=== PATIENT | female | born 1960 | race Caucasian/White ===

== ENCOUNTER 2016-03-29 09:26 | Emergency (ER) ==
[2016-03-29 09:39] VITALS: TEMP 96.4; BMI 31.3
[2016-03-29] MEDS ORDERED: LOPRESSOR IVP STA ×2 (10:05→12:27)
[2016-03-29] MEDS ORDERED: ADENOCARD IVP STA (10:07)
[2016-03-29] MEDS ORDERED: ADENOCARD IVP ONE (10:09)
[2016-03-29 10:10] LABS: BASOPHILS # (AUTO) 0.1 K/uL (0-0.2); BASOPHILS % (AUTO) 0.6 % (0.0-3.0); EOSINOPHILS # (AUTO) 0.1 K/ul (0.0-0.7); EOSINOPHILS % (AUTO) 0.9 % (0.0-7.0); HEMATOCRIT 43.8 % (37.0-47.0); HEMOGLOBIN 14.6 g/dl (12.0-16.0); IMMATURE GRANULOCYTE % (AUTO) 1.9 % (0.0-5.0); LYMPHOCYTES # (AUTO) 2.8 K/uL (0.60-3.4); LYMPHOCYTES % (AUTO) 17.8 (10.0-50.0); MEAN CORPUSCULAR HEMOGLOBIN 32.2 pg (27.0-31.0); MEAN CORPUSCULAR HGB CONC 33.3 (31.8-35.4); MEAN CORPUSCULAR VOLUME 96.7 fl (81.0-99.0); MONOCYTES # (AUTO) 0.8 K/uL (0.4-2.0); MONOCYTES % (AUTO) 5.3 (0-10); NEUTROPHILS # (AUTO) 11.3 K/ul (2.0-6.9); NEUTROPHILS % (AUTO) 73.5; PLATELET COUNT 525 10^3/uL (140-440); RED BLOOD COUNT 4.53 10^6/ul (4.20-5.40); WHITE BLOOD COUNT 15.41 K/ul (4.6-10.2)
[2016-03-29 10:45] LABS: ABG BASE EXCESS -8 (-2.0-2.0); ABG HCO3 17 (22.0-26.0); ABG PH 7.37 (7.35-7.45); ABG TCO2 18 (22.0-28.0)
--- NOTE | 2016-03-29 10:55 | DI ---
EXAM: Chest two views HISTORY: Cough COMPARISON: 09/30/2014 TECHNIQUE: Two views of the chest were performed FINDINGS: There is lower airway bronchial wall thickening. There is no focal airspace consolidatio n. There is no pleural effusion or pneumothorax. The heart is top normal in size. The mediastinal contour is normal. There is no acute abnormality of the bones. IMPRESSION: Lower airway thickening may represent reactive airways disease or bronchiolitis. No fo jennifer airspace consolidation.
[2016-03-29 10:58] LABS: FLU INTERNAL QC INTERNAL QC VALID; RAPID FLU A NEGATIVE (NEGATIVE); RAPID FLU B NEGATIVE (NEGATIVE)
[2016-03-29 11:02] VITALS: BP 102/79
[2016-03-29 11:09] LABS: ALBUMIN 3.7 g/dL (3.4-5.0); ALBUMIN/GLOBULIN RATIO 1.19; ANION GAP 16.1; BILIRUBIN,TOTAL 0.8 mg/dL (0.00-1.20); BUN/CREATININE RATIO 11.68; CALCIUM 9.1 mg/dL (8.2-10.2); CREATININE 1.54 mg/dL (0.60-1.30); POTASSIUM 4.1 mmol/L (3.5-5.10); TOTAL PROTEIN 6.8 g/dL (6.4-8.2); TROPONIN I 0.102 ng/ml (0.0000-0.4000)
[2016-03-29 11:18] LABS: CREATINE KINASE MB 9.4 ng/ml (0.0-3.6)
[2016-03-29] MEDS ORDERED: ROCEPHIN 1 GM in SODIUM CHLORIDE 50 ML IV STA (12:20)
[2016-03-29] MEDS ORDERED: CARDIZEM INJ IVP STA (12:27)
[2016-03-29] MEDS ORDERED: ROCEPHIN ONE (12:46)
--- NOTE | 2016-03-29 12:49 | ED.PDOC ---
General ED Provider: Dr. ELIANE HARRISON Chief Complaint: Respiratory Complaint Stated Complaint: chest pain Time Seen by Physician: 09:30 (sent from PT dept due to shortness of breath during pt ) Mode of Arrival: Wheelchair Information Source: Patient Exam Limitations: No limitations Primary Care Provider: ANNAMARIE STEVENS Nursing and Triage Documentation Reviewed and Agree: Yes (left shoulder surgery mar 14 ) Respiratory Complaint Exam - Respiratory Complaint/Exam Onset/Duration: chest pain shortness of breath cough x 1 day Symptoms Are: Still present, Resolved Timing: Constant Initial Severity: Moderate Current Severity: Moderate Location: Chest Character: Reports: Non-productive cough Alleviating: Reports: Bronchodilators, Spontaneous resolution Associated Signs and Symptoms: Reports: Chest pain History of Healthcare-Acquired Pneumonia: No Pulmonary Embolism Risk Factors: None Cardiac Risk Factors: Reports: Diabetes, Hypertension Pseudomonas Risk Factors: Reports: None Tuberculosis Risk Factors: Reports: None Home Oxygen Use: No Recent Stress Test: No Recent Echo/LV Function: No Current Antibiotic Use: No Current Asthma Medication Use: No Respiratory Distress: None Inadequate Respiratory Effort: No Dysphagia Present: No Stridor Present: No JVD Present: No Accessory Muscle Use: No Retractions: Not Present Diminished Breath Sounds: No Sinus Tenderness: None Grunting Respirations: No Kussmaul Respirations: No Differential Diagnoses: CHF, COPD Exacerbation, Pneumonia, Bronchitis Review of Systems - Review Of Systems Constitutional: Reports: No symptoms Eyes: Reports: No symptoms Ears, Nose, Mouth, Throat: Reports: No symptoms Respiratory: Reports: Cough Cardiac: Reports: Chest pain GI: Reports: No symptoms : Reports: No symptoms Musculoskeletal: Reports: No symptoms Skin: Reports: No symptoms Neurological: Reports: No symptoms Endocrine: Reports: No symptoms Hematologic/Lymphatic: Reports: No symptoms All Other Systems: Reviewed and Negative Past Medical History - Past Medical History Previously Healthy: Yes Endocrine: Reports: DM 1, Hypothyroid, Dyslipidemia Cardiovascular: Reports: Hypertension Respiratory: Reports: None Hematological: Reports: None Gastrointestinal: Reports: Gallstones Genitourinary: Reports: None Neuro/Psych: Reports: TIA, Anxiety, Depression Musculoskeletal: Reports: None Cancer: Reports: None Last Menstrual Period: unknown Other Pertinent Past Medical History: TONSILLS, - Surgical History General Surgical History: Reports: Orthopedic, Other, Tonsillectomy - Family History Family History: Reports: Unknown - Social History Smoking Status: Never smoker Hx Substance Use: No Alcohol Screening: None Physical Exam - Physical Exam Appearance: Well-appearing, No pain distress, Well-nourished Eyes: WHIT, EOMI, Conjunctiva clear ENT: Ears normal, Nose normal, Oropharynx normal Respiratory: Airway patent, Breath sounds clear, Breath sounds equal, Respirations nonlabored Cardiovascular: RRR, Pulses normal, No rub, No murmur GI/: Soft, Nontender, No masses, Bowel sounds normal, No Organomegaly Musculoskeletal: Normal strength, ROM intact, No edema, No calf tenderness Skin: Warm, Dry, Normal color Neurological: Sensation intact, Motor intact, Reflexes intact, Cranial nerves intact, Alert, Oriented Psychiatric: Affect appropriate, Mood appropriate Interpretation - Radiology Interpretation Radiology Interpretation By: Radiologist Radiology Results: No acute changes - EKG Interpretation Time of EKG #2: 12:51 Rate: Normal Rhythm: Sinus Ectopy: None [place]: [place] ST Segment: Normal Critical Care Note - Critical Care Note Total Time (mins): 0 Course - Course Hematology/Chemistry: 03/29/16 10:03 03/29/16 10:12 Orders, Labs, Meds: Lab Review 03/29/16 03/29/16 03/29/16 09:59 10:03 10:12 WBC 15.41 H RBC 4.53 Hgb 14.6 Hct 43.8 MCV 96.7 MCH 32.2 H MCHC 33.3 RDW Coeff of Elva 14.1 Plt Count 525 H Immature Gran % (Auto) 1.9 Neut % (Auto) 73.5 Lymph % (Auto) 17.8 [place] % (Auto) 5.3 Eos % (Auto) 0.9 Baso % (Auto) 0.6 Immature Gran # (Auto) 0.3 Neut # 11.3 H Lymph # 2.8 [place] # 0.8 Eos # 0.1 Baso # 0.1 D-Dimer 1.04 Puncture Site r rad O2 Saturation 97.0 ABG pH 7.37 ABG pCO2 30.0 L ABG pO2 87.0 ABG HCO3 17 L ABG Total CO2 18 L ABG Base Excess -8 L Ander Test + FiO2 % 21.0 Sodium 137 Potassium 4.1 Chloride 103 Carbon Dioxide 22 Anion Gap 16.1 BUN 18 Creatinine 1.54 H Estimated GFR (MDRD) 35.00 BUN/Creatinine Ratio 11.68 Glucose 400 H Lactic Acid 50.9 H Calcium 9.1 Total Bilirubin 0.80 AST 33 ALT 45 Alkaline Phosphatase 93 Total Creatine Kinase 571 CK-MB (CK-2) 9.4 H* CK-MB (CK-2) % 1.95276 Troponin I 0.1020 B-Natriuretic Peptide 101 H Total Protein 6.8 Albumin 3.7 Globulin 3.1 Albumin/Globulin Ratio 1.19 Urine Color Urine Clarity Urine pH Ur Specific [place] Urine Protein Urine Glucose (UA) Urine Ketones Urine Blood Urine Nitrite Urine Bilirubin Urine Urobilinogen Ur Leukocyte Esterase Urine Microscopic RBC Urine Microscopic WBC Ur Squamous Epith Cells Amorphous Sediment Urine Bacteria Influenza A (Rapid) Influenza B (Rapid) 03/29/16 03/29/16 03/29/16 10:25 13:40 16:45 WBC RBC Hgb Hct MCV MCH MCHC RDW Coeff of Elva Plt Count Immature Gran % (Auto) Neut % (Auto) Lymph % (Auto) [place] % (Auto) Eos % (Auto) Baso % (Auto) Immature Gran # (Auto) Neut # Lymph # [place] # Eos # Baso # D-Dimer Puncture Site O2 Saturation ABG pH ABG pCO2 ABG pO2 ABG HCO3 ABG Total CO2 ABG Base Excess Ander Test FiO2 % Sodium Potassium Chloride Carbon Dioxide Anion Gap BUN Creatinine Estimated GFR (MDRD) BUN/Creatinine Ratio Glucose Lactic Acid Calcium Total Bilirubin AST ALT Alkaline Phosphatase Total Creatine Kinase 393 CK-MB (CK-2) Pending CK-MB (CK-2) % Pending Troponin I 0.4400 H B-Natriuretic Peptide Total Protein Albumin Globulin Albumin/Globulin Ratio Urine Color Yellow Urine Clarity Clear Urine pH 7.0 Ur Specific [place] 1.020 Urine Protein 2+ Urine Glucose (UA) Trace Urine Ketones Negative Urine Blood Trace-intact Urine Nitrite Negative Urine Bilirubin Negative Urine Urobilinogen 0.2 Ur Leukocyte Esterase 1+ Urine Microscopic RBC 2-5 Urine Microscopic WBC 5-10 Ur Squamous Epith Cells 2-5 Amorphous Sediment 1+ Urine Bacteria Trace Influenza A (Rapid) Negative Influenza B (Rapid) Negative Orders Category Date Time Status ABG DRAW REQUEST Stat CARDIO 03/29/16 10:03 Completed EKG-(ED ONLY) Stat CARDIO 03/29/16 10:03 Completed EKG-(ED ONLY) Stat CARDIO 03/29/16 12:25 Completed EKG-(ED ONLY) Stat CARDIO 03/29/16 17:44 Ordered ED IV/MEDIPORT/POWERPORT .ONCE EMERGENCY 03/29/16 10:03 Active ABG Stat LAB 03/29/16 09:59 Completed B-TYPE NATRIURETIC PEPTIDE Stat LAB 03/29/16 10:12 Completed BLOOD CULTURE Stat LAB 03/29/16 10:12 Received CBC W/ AUTO DIFF Stat LAB 03/29/16 10:03 Completed COMPREHENSIVE METABOLIC PANEL Stat LAB 03/29/16 10:12 Completed CREATINE KINASE Stat LAB 03/29/16 10:12 Completed CREATINE KINASE Stat LAB 03/29/16 16:45 Results D-DIMER Stat LAB 03/29/16 10:12 Completed FREE T4 (FREE THYROXINE) Stat LAB 03/29/16 17:02 Ordered LACTIC ACID Stat LAB 03/29/16 10:12 Completed MOLECULAR GROUP A STREP Stat LAB 03/29/16 10:25 Results RAPID FLU A/B Stat LAB 03/29/16 10:25 Completed STREP SCREEN Stat LAB 03/29/16 10:25 Results THYROID STIMULATING HORMONE Stat LAB 03/29/16 17:02 Ordered TROPONIN I Stat LAB 03/29/16 10:12 Completed TROPONIN I Stat LAB 03/29/16 16:45 Results UA [URINALYSIS C & S IF INDICATED] Stat LAB 03/29/16 13:40 Completed URINE CULTURE Stat LAB 03/29/16 14:18 Received 0.9 % Sodium Chloride [Saline Flush] MEDS 03/29/16 10:03 Active 1 syr IVF PRN PRN Adenosine [Adenocard] MEDS 03/29/16 10:09 Discontinued 12 mg IVP .STK-MED ONE Adenosine [Adenocard] MEDS 03/29/16 10:07 Discontinued 6 mg IVP ONCE STA Ceftriaxone Sodium [Rocephin] MEDS 03/29/16 12:46 Discontinued 1 gm .ROUTE .STK-MED ONE Ceftriaxone Sodium [Rocephin] 1 gm MEDS 03/29/16 12:20 Discontinued 0.9 % Sodium Chloride [Sodium Chloride] 50 ml IV ONCE Diltiazem HCl Inj [Cardizem Inj] MEDS 03/29/16 12:27 Discontinued 10 mg IVP ONCE STA Mag-Al Plus//Lidocaine [Gi Cocktail] MEDS 03/29/16 17:43 Stat 30 ml PO ONCE STA Metoprolol Tartrate [Lopressor] MEDS 03/29/16 12:27 Discontinued 2.5 mg IVP ONCE STA CHEST, 1V AP ONLY Stat RADS 03/29/16 10:03 Completed Medications Generic Name Dose Route Start Last Admin Trade Name Freq PRN Reason Stop Dose Admin Sodium Chloride 1 syr 03/29/16 10:03 Saline Flush IVF PRN PRN To flush IV Discontinued Medications Generic Name Dose Route Start Last Admin Trade Name Freq PRN Reason Stop Dose Admin Adenosine 6 mg 03/29/16 10:07 03/29/16 14:23 Adenocard IVP 03/29/16 10:08 Not Given ONCE STA Al Hydroxide/Mg Hydroxide 30 ml 03/29/16 17:43 Gi Cocktail PO 03/29/16 17:44 ONCE STA Diltiazem HCl 10 mg 03/29/16 12:27 03/29/16 12:44 Cardizem Inj IVP 03/29/16 12:28 10 mg ONCE STA Administration Ceftriaxone Sodium 1 gm/ 50 mls @ 75 mls/hr 03/29/16 12:20 03/29/16 12:54 Sodium Chloride IV 03/29/16 12:59 75 mls/hr ONCE STA Administration Metoprolol Tartrate 2.5 mg 03/29/16 12:27 03/29/16 14:27 Lopressor IVP 03/29/16 12:28 Not Given ONCE STA Vital Signs: Temp Pulse Resp BP Pulse Ox 03/29/16 09:29 96.4 F L 157 H 20 102/79 98 Departure - Departure Time of Disposition: 17:52 (P.M.D. SAW PT IN THE EMERGENCY ROOM ENZYMES POSITIVE , PT WILL TRANSFERE TO [facility] CCU) Disposition: TSF SHORT-TRM HOSP Discharge Problem: Chest pain Qualifiers: Chest pain type: unspecified Qualifier Code: (R07.9) Chest pain, unspecified Instructions: Chest Pain (ED), Acetaminophen/Guaifenesin/Phenylephrine (By mouth), Thoracic Pain (ED) Condition: Good Pt referred to PMD for follow-up: Yes Allergies/Adverse Reactions: Allergies cephalexin monohydrate [From Keflex] Adverse Reaction (Verified 03/29/16 09:40) Sulfa (Sulfonamide Antibiotics) Adverse Reaction (Verified 03/29/16 09:40) sulfamethoxazole [From Bactrim] Adverse Reaction (Verified 03/29/16 09:40) trimethoprim [From Bactrim] Adverse Reaction (Verified 03/29/16 09:40) Home Medications: Ambulatory Orders Aspirin [Ecotrin] 81 mg PO DAILY 07/25/14 Insulin Glargine,Hum.rec.anlog [Lantus] 70 units SQ BEDTIME 07/25/14 Levetiracetam [Keppra] 250 mg PO BID 07/25/14 Levothyroxine Sodium [Synthroid] 175 mcg PO DAILY 07/25/14 Venlafaxine HCl [Effexor Xr] 75 mg PO DAILY 07/25/14 Clopidogrel Bisulfate [Clopidogrel] 75 mg PO DAILY 02/18/15 Insulin Lispro [Humalog] 8 unit SQ TIDWM PRN 02/18/15 Simvastatin [Simvastatin] 20 mg PO BEDTIME 02/18/15 Amlodipine Besylate/Benazepril [Amlodipine-Benazepril 5-20 mg] 1 cap PO QAM Hydrocodone/Acetaminophen [Lortab 5-325 mg Tablet] 5 - 325 mg PO Q6H PRN Albuterol Sulfate 0.083% Neb [Albuterol 0.083% Neb] 1 vial NEB BID 03/24/16 Albuterol Sulfate [Proventil Hfa] 2 puff INH Q4HR PRN 03/24/16 Amoxicillin/Potassium Clav [Amox-Clav 875-125 mg Tablet] 1 tab PO BID 03/24/16 Budesonide/Formoterol Fumarate [Symbicort 160-4.5 Mcg Inhaler] 2 puff INH BID Benzonatate [Tessalon Perles] 100 mg PO TID PRN 03/29/16 Lisinopril [Prinivil] 20 mg PO DAILY 03/29/16 Disposition Discussed With: Patient
[2016-03-29 14:09] LABS: BILIRUBIN,URINE Negative (NEGATIVE); KETONES,URINE Negative (NEGATIVE); LEUKOCYTE ESTERASE ,URINE 1+ (NEGATIVE); NITRITE,URINE Negative (NEGATIVE); PROTEIN,URINE 2+ (NEGATIVE); URINE, BLOOD Trace-intact (NEGATIVE)
[2016-03-29 14:14] LABS: ADD URINE MICROSCOPIC YES
[2016-03-29 14:17] LABS: BACTERIA,URINE TRACE (NOT PRESENT)
[2016-03-29 17:26] LABS: TROPONIN I 0.44 ng/ml (0.0000-0.4000)
[2016-03-29] MEDS ORDERED: GI COCKTAIL PO STA (17:43)
[2016-03-29] MEDS ORDERED: ASPIRIN CHEWABLE PO STA (17:56)
[2016-03-29] MEDS ORDERED: LOVENOX SUBCUT STA (17:58)
[2016-03-29] MEDS ORDERED: ASPIRIN CHEWABLE ONE (18:01)
[2016-03-29 18:10] LABS: CREATINE KINASE MB 8.3 ng/ml (0.0-3.6)
== END 2016-03-29 19:05 | disposition short-term general hospital (02) ==
LOC: ED 09:26
DX: R07.9 Chest pain, unspecified (principal); R06.02 Shortness of breath; E10.9 Type 1 diabetes mellitus without complications; I10 Essential (primary) hypertension; E03.9 Hypothyroidism, unspecified; E78.5 Hyperlipidemia, unspecified; R74.9 Abnormal serum enzyme level, unspecified; Z86.73 Personal history of transient ischemic attack (TIA), and cerebral infarction without residual deficits; Z79.899 Other long term (current) drug therapy; M25.512 Pain in left shoulder; M25.612 Stiffness of left shoulder, not elsewhere classified; Z98.890 Other specified postprocedural states
CPT/HCPCS: 36415; 80053; 81001; 82550; 82553; 82803; 83605; 83880; 84439; 84443; 84484; 85025; 85379; 87040; 87086; 87651; 87804; 87880; 93005; 93010; 96361; 96365; 96375; 99285

== ENCOUNTER 2016-03-29 19:05 | Outpatient (CLI) ==
[2016-03-29 09:39] VITALS: BMI 31.3
== END 2016-03-29 19:06 | disposition home or self-care (01) ==
LOC: AMBL 19:05
PROVIDERS: ATTEND Internal Medicine
DX: I47.1 Supraventricular tachycardia (principal)

== ENCOUNTER → 2016-04-24 | Outpatient (RCR) ==
--- NOTE | 2016-03-26 09:50 | RS.OPPTDN ---
Subjective Date of Note: 03/26/16 Visit #: 4 Date of Evaluation: 03/15/16 Payer Source: Medicaid Treatment Diagnosis: Left shoulder pain, left shoulder stiffness, s/p shoulder surgery. Current Subjective/complaints:: Patient says she went to the ER Saturday because she was having trouble breathing. She says she has been on antibiotics for congestion, but received stronger prescription through our ER. She says shoulder mobility is improving and remains sore. She says she returns to her ortho this Saturday for follow up and removal of stitches. *Precautions: Diabetic Pain Assessment - Pain Description Pain Location: left shoulder Current Pain Intensity: "sore" - Heat/Cryotherapy Treatment: Cryotherapy (15 mins to the L shoulder in sitting) Interventions - Exercise/Activities/Manual Therapy Exercises/Activities: PROM painfree ranges of the L shoulder in supine, then elbow and wrist. Patient performs AROM for the elbow and wrist. Began wand for chest press, short range flexion, and IR/ER, 2s/10reps each. 1.5 and 3# digiflexor x 10 each, 1# ball for wrist ext, flexion, elbow sup/pron, flex/ext x 10. Light isometric shoulder add, ext, biceps and triceps 2/5. Sitting: shoulder shrugs, scap adduction x 10. Shoulder pulleys x 3 mins. Total minutes of Exercise: 30 Manual Therapy: NA HOME EXERCISE PROGRAM: Pendulum, scapular retraction, isometric shoulde add and ext with pillow, wand for chest press, short flexion, and IR/ER in supine. - Charges Total Direct Minutes: 30 Total Treatment Time: 45 Procedures billed for this date of service:: cp, ex2 Assessment: Improved guarding and mobility today especially with elevation. Patient demonstrates approx 100 degrees flexion during pulleys with only tightness at end range. Patient Education: Education of diagnosis, Body/Joint mechanics, Home Exercise Program, Home Safety, Activity Modification, Education of Plan of Care Patient demonstrates compliance with HEP?: Yes Short Term Goals Goal #1: Left shoulder PROM WFL's. Goal to be met by: 04/01/16 Progress towards Goal:: Progressing Goal #2: Left shoulder AROM to shoulder height. Goal to be met by: 04/01/16 Progress towards Goal:: Progressing Goal #3: Pt independent and compliant in basic HEP. Goal to be met by: 04/01/16 Ink Maker Goals Goal #1: Pt able to cont. HEP to maintain level of function at discharge. Goal to be met by: 04/19/16 Goal #2: Score on UE functional scale improved to <39% impairment. Goal to be met by: 04/19/16 Goal #3: Left shoulder AROM WFL's to perform all selfcare and ADL's. Goal to be met by: 04/19/16 Goal #4: Pt to demonstrate good postural awareness. Goal to be met by: 04/19/16 Plan PLAN OF CARE EXPIRES ON:: 04/19/16 ORDER # VISITS AND/OR THROUGH DATE: 04/19/16 PLAN: Progress Exercises
--- NOTE | 2016-03-29 09:36 | RS.CXNS ---
Date of scheduled appointment: 03/29/16 Type: Cancel Reason for Cancel/NS: Patient was being called back for PT and she appeared sweating and flushed. She c/o trouble breathing and nauseated. Attempted to take BP at nursing station and received error twice. Patient then began to c/o chest pain. Transported patient to ER and assisted with registration. Contacted her mother by her request.
[2016-03-29 09:39] VITALS: BMI 31.3
--- NOTE | 2016-03-30 08:40 | RS.CXNS ---
Date of scheduled appointment: 03/30/16 Type: Cancel (Patient called,is in hospital.)
--- NOTE | 2016-04-05 16:29 | RS.OPPTDN ---
Subjective Date of Note: 04/05/16 Visit #: 5 Date of Evaluation: 03/15/16 Payer Source: Medicaid Treatment Diagnosis: Left shoulder pain, left shoulder stiffness, s/p shoulder surgery. Current Subjective/complaints:: Patient admits to being tired from being hospitalized. She indicates she did have a heart cath related to DC last week. She says her shoulder is bothering her a great deal since she was unable to perform HEP. *Precautions: Diabetic Pain Assessment - Pain Description Pain Location: left shoulder Current Pain Intensity: "sore" - Heat/Cryotherapy Treatment: Cryotherapy (20 mins to the L shoulder in supine after therex) Interventions - Exercise/Activities/Manual Therapy Exercises/Activities: PROM painfree ranges of the L shoulder in supine, then elbow and wrist. Patient performs AROM for the elbow and wrist. Continued as derrick wand for chest press, short range flexion x 5, and IR/ER, 2s/10reps each. 1.5 and 3# digiflexor x 10 each, 1# ball for wrist ext, flexion, elbow sup/pron , flex/ext x 10. Light isometric shoulder add, ext, biceps and triceps 2/5. Sitting: shoulder shrugs, scap adduction x 10. Total minutes of Exercise: 27 Manual Therapy: NA HOME EXERCISE PROGRAM: Pendulum, scapular retraction, isometric shoulde add and ext with pillow, wand for chest press, short flexion, and IR/ER in supine. - Charges Total Direct Minutes: 27 Total Treatment Time: 47 Procedures billed for this date of service:: cp, ex2 Assessment: Patient recently had DC and remains fatigued. She has increased L shoulder pain related to inactivity for it. She appeared to derrick all therex well today after several mins into activity. Passive flexion derrick to 120 degrees , abd more limited to approx 60 degrees. Incision sites well healed and cold pack did relieve symptoms related to therex today. Patient Education: Education of diagnosis, Body/Joint mechanics, Home Exercise Program, Home Safety, Activity Modification, Education of Plan of Care Short Term Goals Goal #1: Left shoulder PROM WFL's. Goal to be met by: 04/01/16 Progress towards Goal:: Progressing Goal #2: Left shoulder AROM to shoulder height. Goal to be met by: 04/01/16 Progress towards Goal:: Progressing Goal #3: Pt independent and compliant in basic HEP. Goal to be met by: 04/01/16 Long-Term Goals Goal #1: Pt able to cont. HEP to maintain level of function at discharge. Goal to be met by: 04/19/16 Goal #2: Score on UE functional scale improved to <39% impairment. Goal to be met by: 04/19/16 Goal #3: Left shoulder AROM WFL's to perform all selfcare and ADL's. Goal to be met by: 04/19/16 Goal #4: Pt to demonstrate good postural awareness. Goal to be met by: 04/19/16 Plan PLAN OF CARE EXPIRES ON:: 04/19/16 ORDER # VISITS AND/OR THROUGH DATE: 04/19/16 PLAN: Progress Exercises
--- NOTE | 2016-04-09 10:35 | RS.OPPTDN ---
Subjective Date of Note: 04/09/16 Visit #: 6 Date of Evaluation: 03/15/16 Payer Source: Medicaid Treatment Diagnosis: Left shoulder pain, left shoulder stiffness, s/p shoulder surgery. Current Subjective/complaints:: Patient says her shoulder has been bothering her and not getting much sleep. Reports that she has been fatigued from her [facility]. She says she is taking Tylenol approx every 6 hours and a pain pill at bedtime last night, which did help. *Precautions: Diabetic Pain Assessment - Pain Description Pain Location: left shoulder Current Pain Intensity: "sore" - Heat/Cryotherapy Treatment: Cryotherapy (20 mins to the L shoulder in supine after therex) Interventions - Exercise/Activities/Manual Therapy Exercises/Activities: PROM painfree ranges of the L shoulder in supine, then elbow and wrist. Patient performs AROM for the elbow and wrist. Continued as derrick wand for chest press, short range flexion 2 x 5, and IR/ER, 2s/10reps each. 5# and 3# digiflexor x 10 each, 1# ball for wrist ext, flexion, elbow sup/pron, flex/ext x 10. Light isometric shoulder add, ext, biceps and triceps 2/5. Sitting: shoulder shrugs, scap adduction x 10. Active shoulder flexion 2/5. Shoulder pulleys x 3 mins. Total minutes of Exercise: 27 Manual Therapy: NA HOME EXERCISE PROGRAM: Pendulum, scapular retraction, isometric shoulde add and ext with pillow, wand for chest press, short flexion, and IR/ER in supine. - Charges Total Direct Minutes: 27 Total Treatment Time: 47 Procedures billed for this date of service:: cp, ex2 Assessment: Patient with continued soreness to the L shoulder with disturbed sleep. She takes Tylenol, which helps somewhat, but did resort to her prescription pain pill at bedtime to gain relief at bedtime. She demos improved active flexion in sitting to approx 90 degrees and passively to 135. ABD limited to approx 50 degrees passively. Patient Education: Education of diagnosis, Body/Joint mechanics, Home Exercise Program, Home Safety, Activity Modification, Education of Plan of Care Patient demonstrates compliance with HEP?: Yes Short Term Goals Goal #1: Left shoulder PROM WFL's. Goal to be met by: 04/01/16 Progress towards Goal:: Progressing Goal #2: Left shoulder AROM to shoulder height. Goal to be met by: 04/01/16 Progress towards Goal:: Progressing Goal #3: Pt independent and compliant in basic HEP. Goal to be met by: 04/01/16 Progress towards Goal:: Progressing Mcc Goals Goal #1: Pt able to cont. HEP to maintain level of function at discharge. Goal to be met by: 04/19/16 Goal #2: Score on UE functional scale improved to <39% impairment. Goal to be met by: 04/19/16 Goal #3: Left shoulder AROM WFL's to perform all selfcare and ADL's. Goal to be met by: 04/19/16 Goal #4: Pt to demonstrate good postural awareness. Goal to be met by: 04/19/16 Plan PLAN OF CARE EXPIRES ON:: 04/19/16 ORDER # VISITS AND/OR THROUGH DATE: 04/19/16 PLAN: Progress Exercises
--- NOTE | 2016-04-11 13:22 | RS.OPPTDN ---
Subjective Date of Note: 04/11/16 Visit #: 7 Date of Evaluation: 03/15/16 Payer Source: Medicaid Treatment Diagnosis: Left shoulder pain, left shoulder stiffness, s/p shoulder surgery. Current Subjective/complaints:: Patient states she is slowly regaining energy and mobility. Reports that she can reach into cabinets better and groom her hair, but pushing off from objects is still painful (bathtub/chair). *Precautions: Diabetic Pain Assessment - Pain Description Pain Location: left shoulder Current Pain Intensity: "sore" - Heat/Cryotherapy Treatment: Cryotherapy (20 mins to the L shoulder in supine) Interventions - Exercise/Activities/Manual Therapy Exercises/Activities: PROM painfree ranges of the L shoulder in supine, then elbow and wrist. Patient performs AROM for the elbow and wrist. Continued as derrick wand for chest press and bilateral shoulder flexion, and IR/ER, 2s/10reps each. 5# and 3# digiflexor x 10 each, Progressed to 2# ball for wrist ext, flexion, elbow sup/pron, flex/ext x 10. Light isometric shoulder add, ext, biceps and triceps 2/5. Sitting: shoulder shrugs, scap adduction x 10. Active shoulder flexion 2/5. Shoulder pulleys x 3 mins. Total minutes of Exercise: 27 Manual Therapy: NA HOME EXERCISE PROGRAM: Pendulum, scapular retraction, isometric shoulde add and ext with pillow, wand for chest press, short flexion, and IR/ER in supine. - Charges Total Direct Minutes: 27 Total Treatment Time: 42 Procedures billed for this date of service:: cp, ex2 Assessment: Patient is able to AA shoulder flexion to WFL today, but ABD is still difficult to derrick past approx 45 degrees. She takes Aleve/Tylenol prn. Function is improving and pain is decreasing as well. Patient Education: Education of diagnosis, Body/Joint mechanics, Home Exercise Program, Home Safety, Activity Modification, Education of Plan of Care Patient demonstrates compliance with HEP?: Yes Short Term Goals Goal #1: Left shoulder PROM WFL's. Goal to be met by: 04/01/16 Progress towards Goal:: Progressing Goal #2: Left shoulder AROM to shoulder height. Goal to be met by: 04/01/16 Progress towards Goal:: Progressing Goal #3: Pt independent and compliant in basic HEP. Goal to be met by: 04/01/16 Progress towards Goal:: Progressing Rn Family Goals Goal #1: Pt able to cont. HEP to maintain level of function at discharge. Goal to be met by: 04/19/16 Goal #2: Score on UE functional scale improved to <39% impairment. Goal to be met by: 04/19/16 Goal #3: Left shoulder AROM WFL's to perform all selfcare and ADL's. Goal to be met by: 04/19/16 Goal #4: Pt to demonstrate good postural awareness. Goal to be met by: 04/19/16 Plan PLAN OF CARE EXPIRES ON:: 04/19/16 ORDER # VISITS AND/OR THROUGH DATE: 04/19/16 PLAN: Progress Exercises
--- NOTE | 2016-04-13 12:04 | RS.OPPTDN ---
Subjective Date of Note: 04/13/16 Visit #: 8 Date of Evaluation: 03/15/16 Payer Source: Medicaid Treatment Diagnosis: Left shoulder pain, left shoulder stiffness, s/p shoulder surgery. Current Subjective/complaints:: Patient says she took a pain pill at bedtime last night. She says she had trouble getting to sleep due to positioning of the L shoulder. She says mobility is improving. *Precautions: Diabetic Pain Assessment - Pain Description Pain Location: left shoulder Current Pain Intensity: "sore" - Heat/Cryotherapy Treatment: Cryotherapy (20 mins to the L shoulder sitting after therex) Interventions - Exercise/Activities/Manual Therapy Exercises/Activities: PROM painfree ranges of the L shoulder in supine, then elbow and wrist. Patient performs AROM for the elbow and wrist. Manual isometrics all dir of shoulder 2/5. Continued as derrick 2# wand for chest press and bilateral shoulder flexion, and IR/ER, 2s/10reps each. 5# and 3# digiflexor 2 x 10 each, Progressed to 2# ball for wrist ext, flexion, elbow sup/pron, flex/ ext x 10. Light isometric shoulder add, ext, biceps and triceps 2/5. Sitting: shoulder shrugs, scap retraction with red tband therapy stick x 10. Total minutes of Exercise: 26 Manual Therapy: NA HOME EXERCISE PROGRAM: Pendulum, scapular retraction, isometric shoulde add and ext with pillow, wand for chest press, short flexion, and IR/ER in supine. - Charges Total Direct Minutes: 26 Total Treatment Time: 46 Procedures billed for this date of service:: cp, ex2 Assessment: Patient derrick increased passive flexion and abd. She resorts to taking a pain pill mostly at bedtime. She does have difficulty sleeping due to positioning. Patient Education: Education of diagnosis, Body/Joint mechanics, Home Exercise Program, Home Safety, Activity Modification, Education of Plan of Care Patient demonstrates compliance with HEP?: Yes Short Term Goals Goal #1: Left shoulder PROM WFL's. Goal to be met by: 04/01/16 Progress towards Goal:: Progressing Goal #2: Left shoulder AROM to shoulder height. Goal to be met by: 04/01/16 Progress towards Goal:: Progressing Goal #3: Pt independent and compliant in basic HEP. Goal to be met by: 04/01/16 Progress towards Goal:: Progressing Table Attendant Goals Goal #1: Pt able to cont. HEP to maintain level of function at discharge. Goal to be met by: 04/19/16 Goal #2: Score on UE functional scale improved to <39% impairment. Goal to be met by: 04/19/16 Goal #3: Left shoulder AROM WFL's to perform all selfcare and ADL's. Goal to be met by: 04/19/16 Goal #4: Pt to demonstrate good postural awareness. Goal to be met by: 04/19/16 Plan PLAN OF CARE EXPIRES ON:: 04/19/16 ORDER # VISITS AND/OR THROUGH DATE: 04/19/16 PLAN: Progress Exercises
--- NOTE | 2016-04-18 15:20 | RS.OPPTDN ---
Subjective Date of Note: 04/18/16 Visit #: 9 Date of Evaluation: 03/15/16 Payer Source: Medicaid Treatment Diagnosis: Left shoulder pain, left shoulder stiffness, s/p shoulder surgery. Current Subjective/complaints:: Patient c/o elevated pain to the L shoulder. Reports she has used Icy Hot to her arm. *Precautions: Diabetic Pain Assessment - Pain Description Pain Location: left shoulder Current Pain Intensity: more pain today - Treatment Modality: Electrical Stim Unattended Parameters/Method Applied: 4 small pads hivolt x 20 mins @ 75 pk volts Treatment Area: L shoulder and UT Patient Position: Sitting - Heat/Cryotherapy Treatment: Cryotherapy Interventions - Exercise/Activities/Manual Therapy Exercises/Activities: PROM painfree ranges of the L shoulder in supine, then elbow and wrist. Patient performs AROM for the elbow and wrist. Manual isometrics all dir of shoulder 2/5. Continued as derrick 2# wand for chest press and bilateral shoulder flexion, and IR/ER, 2s/10reps each. 5# and 3# digiflexor 2 x 10 each, Light isometric shoulder add, ext, biceps and triceps 2/5. Sitting : shoulder shrugs, scap retraction with red tband therapy stick x 10. Omitted some therex due to patient having elevated pain. Total minutes of Exercise: 22 Manual Therapy: NA HOME EXERCISE PROGRAM: Pendulum, scapular retraction, isometric shoulde add and ext with pillow, wand for chest press, short flexion, and IR/ER in supine. - Charges Total Direct Minutes: 22 Total Treatment Time: 42 Procedures billed for this date of service:: cp, estim (un), ex Assessment: Patient with elevated pain to the L shoulder. With modalities, she admits improvement, but did have aggravation during therex. Patient Education: Education of diagnosis, Body/Joint mechanics, Home Exercise Program, Home Safety, Activity Modification, Education of Plan of Care Patient demonstrates compliance with HEP?: Yes Short Term Goals Goal #1: Left shoulder PROM WFL's. Goal to be met by: 04/01/16 Progress towards Goal:: Progressing Goal #2: Left shoulder AROM to shoulder height. Goal to be met by: 04/01/16 Progress towards Goal:: Progressing Goal #3: Pt independent and compliant in basic HEP. 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 HEP to maintain level of function at discharge. Goal to be met by: 04/19/16 Goal #2: Score on UE functional scale improved to <39% impairment. Goal to be met by: 04/19/16 Goal #3: Left shoulder AROM WFL's to perform all selfcare and ADL's. Goal to be met by: 04/19/16 Goal #4: Pt to demonstrate good postural awareness. Goal to be met by: 04/19/16 Plan PLAN OF CARE EXPIRES ON:: 04/19/16 ORDER # VISITS AND/OR THROUGH DATE: 04/19/16 PLAN: Progress Exercises
--- NOTE | 2016-04-24 16:18 | RS.PTSUM ---
Progress Note/Summary Date of Note: 04/24/16 Date of Evaluation: 03/15/16 Number of Visits: 10 Reporting Period for this Progress Note: 03/15/16 through 04/24/16 Current Complaints/Gains: Patient reports continued left shoulder pain. She is left hand dominant and can not use it without pain for dressing, cooking, and any other light ADL's. Reports she cannot lay on the left shoulder and it wakes her up if she rolls over onto it. Reports pain during ROM/stretching today. Objective Measurements/Presentation: PROM of the left shoulder: ER 35 degrees, flexion 120 degrees, scaption 120 degrees. AROM of left shoulder is to 80 degrees flexion, limited by pain. General strength of the left shoulder is 4/5 in the available range. She demonstrates moderate muscle tone/guarding throughout the left upper traps. Left scapula is elevated compared to the right. She appears to still have edema above the left clavicle. Patient received treatment of hotpack and Estim to left upper traps X 20 mins prior to Ex. Receives stretching/ROM to left shoulder. Wand 1# for bench press and shoulder flexion. Isometrics in all directions left shoulder and elbow. G Codes: Self care current CJ. Self care goal CI Source of G Code Score: UE functional scale. Patient's self assessment score puts her at 17.5% impaired. Her presentation today shows her to be at least 25 % impaired. - Short Term Goals Goal #1: Left shoulder PROM WFL's. Goal to be met by: 05/08/16 Progress towards Goal:: Progressing Goal #2: Left shoulder AROM to shoulder height. Goal to be met by: 05/08/16 Progress towards Goal:: Progressing Goal #3: Pt independent and compliant in basic HEP. Goal to be met by: 05/08/16 Progress towards Goal:: Progressing Goal #4: Muscle tone left upper traps decreased to minimal. 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 HEP to maintain level of function at discharge. Goal to be met by: 05/24/16 Progress towards goal: Progressing Goal #2: Score on UE functional scale improved to <15% impairment. Goal to be met by: 05/24/16 Progress towards goal: Progressing Goal #3: Left shoulder AROM WFL's to perform all selfcare and ADL's. Goal to be met by: 05/24/16 Goal #4: Pt to demonstrate good postural awareness. Goal to be met by: 05/24/16 Progress towards goal: Progressing - Assessment Assessment of Improvement/Progress: Patient overall is able to use the left UE for more selfcare and ADL's than she could the day of the evaluation ( immediately after surgery). She continues to have limited Passive and Active ROM , muscle guarding, pain, and edema throughout the left GH joint. She demonstrates potential to benefit from continued skilled therapy to improved GH joint mobility and her functional use of the left UE. Summary: Patient demonstrates potential to gain increased function with therapy , Maximum potential has yet to be attained. - Plan Plan: Continue Plan of Care Comments: Order received to continue therapy. PLAN OF CARE EXPIRES ON:: 05/24/16 ORDER # VISITS AND/OR THROUGH DATE: 05/24/16
== END ==
PROVIDERS: ATTEND Orthopaedic Surgery
DX: M25.512 Pain in left shoulder (principal); M25.612 Stiffness of left shoulder, not elsewhere classified; Z98.890 Other specified postprocedural states

== ENCOUNTER 2016-05-11 11:00 | Outpatient (RCR) ==
--- NOTE | 2016-04-26 13:58 | RS.OPPTDN ---
Subjective Date of Note: 04/26/16 Visit #: 11 Date of Evaluation: 03/15/16 Payer Source: Medicaid Treatment Diagnosis: Left shoulder pain, left shoulder stiffness, s/p shoulder surgery. Current Subjective/complaints:: Patient reports stiffness right shoulder joint. Reports tenderness at the right upper traps. *Precautions: Diabetic Pain Assessment - Pain Description Pain Location: left shoulder Current Pain Intensity: mild to mod Other Comments regarding Pain:: States she is haveing trouble sleeping due to pain in the upper traps. - Treatment Modality: Electrical Stim Unattended Parameters/Method Applied: [id number] HVGC to 110p.v. with 4 small pads to the right shoulder joint with HP prior to Ex. Patient Position: Sitting - Heat/Cryotherapy Treatment: Hot Pack ([id number] with Estim ) Interventions - Exercise/Activities/Manual Therapy Exercises/Activities: PROM painfree ranges of the L shoulder. elbow and wrist in supine. Patient performs AROM for the elbow and wrist. Manual isometrics for right shoulder add, ext, IR, and ER. Continued 2# wand for chest press and bilateral shoulder flexion, and IR/ER, multiple reps. Sitting: shoulder shrugs and scap retraction. Total minutes of Exercise: 13mins Manual Therapy: [id number] myofascial massage and trigger point work to the right traps. Patient sitting. Total minutes of Manual Therapy: 12mins HOME EXERCISE PROGRAM: Pendulum, scapular retraction, isometric shoulde add and ext with pillow, wand for chest press, short flexion, and IR/ER in supine. - Charges Total Direct Minutes: 25mins Total Treatment Time: 50mins Procedures billed for this date of service:: HP, Estim unattended, MT, EX Assessment: Patient with active trigger point right traps. She is able to demo increase PROM with stretching today. Patient Education: Home Exercise Program, Home Safety, Activity Modification Patient demonstrates compliance with HEP?: Yes Short Term Goals Goal #1: Left shoulder PROM WFL's. Goal to be met by: 05/08/16 Progress towards Goal:: Progressing Goal #2: Left shoulder AROM to shoulder height. Goal to be met by: 05/08/16 Progress towards Goal:: Progressing Goal #3: Pt independent and compliant in basic HEP. Goal to be met by: 05/08/16 Progress towards Goal:: Progressing Goal #4: Muscle tone left upper traps decreased to minimal. 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 HEP to maintain level of function at discharge. Goal to be met by: 05/24/16 Progress towards goal: Progressing Goal #2: Score on UE functional scale improved to <15% impairment. Goal to be met by: 05/24/16 Progress towards goal: Progressing Goal #3: Left shoulder AROM WFL's to perform all selfcare and ADL's. Goal to be met by: 05/24/16 Goal #4: Pt to demonstrate good postural awareness. Goal to be met by: 05/24/16 Progress towards goal: Progressing Plan PLAN OF CARE EXPIRES ON:: 05/24/16 ORDER # VISITS AND/OR THROUGH DATE: 05/24/16 PLAN: Continue Plan of Care
--- NOTE | 2016-05-01 10:55 | RS.OPPTDN ---
Subjective Date of Note: 05/01/16 Visit #: 12 Date of Evaluation: 03/15/16 Payer Source: Medicaid Treatment Diagnosis: Left shoulder pain, left shoulder stiffness, s/p shoulder surgery. Current Subjective/complaints:: Patient reports left shoulder joint is stiff, but is doing better overall. *Precautions: Diabetic Pain Assessment - Pain Description Pain Location: left shoulder Current Pain Intensity: mild to mod - Heat/Cryotherapy Treatment: Hot Pack ([id number] to left shoulder prior to EX. Patient in supine. ) Interventions - Exercise/Activities/Manual Therapy Exercises/Activities: [id number] PROM left shoulder all directions. PROM elbow and wrist. Limited AAROM of left shoulder. Patient performs AROM for the elbow and wrist. Manual isometrics for right shoulder add, ext, IR, and ER. Continued 2# wand for chest press and bilateral shoulder flexion, and IR/ER, multiple reps. In sitting, left shoulder shrugs and scap retraction. Isometric bilateral shoulder extension. Reviewed Codmans. Began limited ball on the wall. Total minutes of Exercise: 30mins Manual Therapy: NA HOME EXERCISE PROGRAM: Pendulum, scapular retraction, isometric shoulde add and ext with pillow, wand for chest press, short flexion, and IR/ER in supine. - Charges Total Direct Minutes: 30mins Total Treatment Time: 50mins Procedures billed for this date of service:: HP, EX2 Assessment: Patient able to progress with limited active assistive exercises. Patient Education: Body/Joint mechanics, Home Exercise Program, Home Safety Patient demonstrates compliance with HEP?: Yes Short Term Goals Goal #1: Left shoulder PROM WFL's. Goal to be met by: 05/08/16 Progress towards Goal:: Progressing Goal #2: Left shoulder AROM to shoulder height. Goal to be met by: 05/08/16 Progress towards Goal:: Progressing Goal #3: Pt independent and compliant in basic HEP. Goal to be met by: 05/08/16 Progress towards Goal:: Progressing Goal #4: Muscle tone left upper traps decreased to minimal. Goal to be met by: 05/08/16 Penitentiary Goals Goal #1: Pt able to cont. HEP to maintain level of function at discharge. Goal to be met by: 05/24/16 Progress towards goal: Progressing Goal #2: Score on UE functional scale improved to <15% impairment. Goal to be met by: 05/24/16 Progress towards goal: Progressing Goal #3: Left shoulder AROM WFL's to perform all selfcare and ADL's. Goal to be met by: 05/24/16 Goal #4: Pt to demonstrate good postural awareness. Goal to be met by: 05/24/16 Progress towards goal: Progressing Plan PLAN OF CARE EXPIRES ON:: 05/24/16 ORDER # VISITS AND/OR THROUGH DATE: 05/24/16 PLAN: Continue Plan of Care
--- NOTE | 2016-05-04 15:05 | RS.OPPTDN ---
Subjective Date of Note: 05/04/16 Date of Evaluation: 03/15/16 Payer Source: MEDICARE Treatment Diagnosis: Left shoulder pain, left shoulder stiffness, s/p shoulder surgery. Current Subjective/complaints:: States she saw the doctor at the [facility] and they saw her swelling and moved her arm a little. They told her to continue therapy. Reports progress with her left shoulder is not going as quickly as she would like. States she has to rely on the right hand for most selfcare and ADL's. *Precautions: Diabetic Pain Assessment - Pain Description Pain Location: left shoulder Current Pain Intensity: mild to mod - Heat/Cryotherapy Treatment: Hot Pack (X 15 mins to the left shoulder prior to exercise) Interventions - Exercise/Activities/Manual Therapy Exercises/Activities: x 27mins PROM left shoulder all directions. PROM elbow and wrist. Limited AAROM of left shoulder. Patient performs AROM for the elbow and wrist. Manual isometrics for right shoulder flexion, add, ext, IR, and ER. Continued 2# wand for chest press and bilateral shoulder flexion, and IR/ER, multiple reps. In sitting, left shoulder shrugs and scap retraction. Performed ball on the wall at various heights for 30 seconds. Manual Therapy: NA HOME EXERCISE PROGRAM: Pendulum, scapular retraction, isometric shoulde add and ext with pillow, wand for chest press, short flexion, and IR/ER in supine. - Objective Findings Observations,measurements,etc.: Sitting AROM of the left shoulder to 100 degrees with reports of discomfort. Left shoulder abduction to 85 degrees with discomfort. - Charges Total Direct Minutes: 27 mins Total Treatment Time: 42 mins Procedures billed for this date of service:: hp, EX2 Assessment: Patient tolerates all left shoulder ROM better than last time I worked with her. She is gaining AROM, but continues to have pain and limited use of the left for ADL's/selfcare. She demonstrates the need for continued strengthening exercises to gain further use of the left UE. Patient Education: Education of diagnosis, Body/Joint mechanics, Home Exercise Program Short Term Goals Goal #1: Left shoulder PROM WFL's. Goal to be met by: 05/08/16 Progress towards Goal:: Progressing Comments:: 80% Goal #2: Left shoulder AROM to shoulder height. Goal to be met by: 05/08/16 Progress towards Goal:: Met Goal #3: Pt independent and compliant in basic HEP. Goal to be met by: 05/08/16 Progress towards Goal:: Progressing Goal #4: Muscle tone left upper traps decreased to minimal. Goal to be met by: 05/08/16 Progress towards Goal:: Progressing Fdc Goals Goal #1: Pt able to cont. HEP to maintain level of function at discharge. Goal to be met by: 05/24/16 Progress towards goal: Progressing Goal #2: Score on UE functional scale improved to <15% impairment. Goal to be met by: 05/24/16 Progress towards goal: Progressing Goal #3: Left shoulder AROM WFL's to perform all selfcare and ADL's. Goal to be met by: 05/24/16 Progress towards goal: Progressing Goal #4: Pt to demonstrate good postural awareness. Goal to be met by: 05/24/16 Progress towards goal: Progressing Plan PLAN OF CARE EXPIRES ON:: 05/24/16 ORDER # VISITS AND/OR THROUGH DATE: 05/24/16 PLAN: Continue Plan of Care
--- NOTE | 2016-05-08 15:07 | RS.OPPTDN ---
Subjective Date of Note: 05/08/16 Visit #: 14 Date of Evaluation: 03/15/16 Payer Source: MEDICARE Treatment Diagnosis: Left shoulder pain, left shoulder stiffness, s/p shoulder surgery. Current Subjective/complaints:: Patient reports she is doing better. Continues to have stiffness left shoulder joint. Reports heat and Estim helped. *Precautions: Diabetic Pain Assessment - Pain Description Pain Location: left shoulder Current Pain Intensity: mild to mod - Treatment Modality: Electrical Stim Unattended Parameters/Method Applied: [id number] HVGC to 120p.v 4 small pads to left shoulder joint with HP. Patient Position: Supine - Heat/Cryotherapy Treatment: Hot Pack ([id number] with Estim ) Interventions - Exercise/Activities/Manual Therapy Exercises/Activities: [id number] PROM left shoulder all directions. PROM elbow and wrist. Limited AAROM of left shoulder. Patient performs AROM for the elbow and wrist. Manual isometrics for right shoulder flexion, add, ext, IR, and ER. 2# wand for chest press and bilateral shoulder flexion, and IR/ER, multiple reps. In sitting, left shoulder shrugs and scap retraction. Total minutes of Exercise: 20mins Manual Therapy: NA HOME EXERCISE PROGRAM: Pendulum, scapular retraction, isometric shoulde add and ext with pillow, wand for chest press, short flexion, and IR/ER in supine. - Charges Total Direct Minutes: 20mins Total Treatment Time: 40mins Procedures billed for this date of service:: HP, Estim unattended, EX Assessment: Patient continues to have tightness of the left shoulder with PROM. Patient Education: Home Exercise Program Patient demonstrates compliance with HEP?: Yes Short Term Goals Goal #1: Left shoulder PROM WFL's. Goal to be met by: 05/08/16 Progress towards Goal:: Progressing Goal #2: Left shoulder AROM to shoulder height. Goal to be met by: 05/08/16 Progress towards Goal:: Met Goal #3: Pt independent and compliant in basic HEP. Goal to be met by: 05/08/16 Progress towards Goal:: Progressing Goal #4: Muscle tone left upper traps decreased to minimal. Goal to be met by: 05/08/16 Progress towards Goal:: Progressing Snf Goals Goal #1: Pt able to cont. HEP to maintain level of function at discharge. Goal to be met by: 05/24/16 Progress towards goal: Progressing Goal #2: Score on UE functional scale improved to <15% impairment. Goal to be met by: 05/24/16 Progress towards goal: Progressing Goal #3: Left shoulder AROM WFL's to perform all selfcare and ADL's. Goal to be met by: 05/24/16 Progress towards goal: Progressing Goal #4: Pt to demonstrate good postural awareness. Goal to be met by: 05/24/16 Progress towards goal: Progressing Plan PLAN OF CARE EXPIRES ON:: 05/24/16 ORDER # VISITS AND/OR THROUGH DATE: 05/24/16 PLAN: Continue Plan of Care (Continue and progress PROM and AROM of the left shoulder.)
--- NOTE | 2016-05-11 13:45 | RS.OPPTDN ---
Subjective Date of Note: 05/11/16 Visit #: 15 Date of Evaluation: 03/15/16 Payer Source: MEDICARE Treatment Diagnosis: Left shoulder pain, left shoulder stiffness, s/p shoulder surgery. Current Subjective/complaints:: Following heat and Estim to the left shoulder patient reported feeling as if her heart was racing. She reported slight difficulty with breathing. Paitent agreed to have BP checked in Cardiopulmonary and then agreed to be transported to ER. *Precautions: Diabetic Pain Assessment - Pain Description Pain Location: left shoulder Current Pain Intensity: mild to mod - Treatment Modality: Electrical Stim Unattended Parameters/Method Applied: [id number] HVGC to the left shoulder at 120p.v. with HP. Patient in sitting. Patient Position: Sitting - Heat/Cryotherapy Treatment: Hot Pack ([id number] with Estim ) Interventions - Exercise/Activities/Manual Therapy Exercises/Activities: 3mins. Began PROM to the left shoulder but patient began to feel worse. Stopped treatment at that point. Total minutes of Exercise: 3mins Manual Therapy: NA HOME EXERCISE PROGRAM: Pendulum, scapular retraction, isometric shoulde add and ext with pillow, wand for chest press, short flexion, and IR/ER in supine. - Objective Findings Observations,measurements,etc.: Patient reported feeling of heart racing and was assisted to supine with LE's elevated. Pulsed checked at 64 bpm. Due to patients reports of some difficulty breathing, she was taken to Cardiopulmonary and it was determined her BP was elevated. She was transported to ER by recliner chair with LE's elevated. Patient received by ER staff for admission and assessment. - Charges Total Direct Minutes: 3mins Total Treatment Time: 23mins Procedures billed for this date of service:: HP, Estim unatteded Assessment: Treatment stopped early today due to patient not feeling well. She is now being treated in ER. Patient may resume if cleared by physician. Short Term Goals Goal #1: Left shoulder PROM WFL's. Goal to be met by: 05/08/16 Progress towards Goal:: Progressing Goal #2: Left shoulder AROM to shoulder height. Goal to be met by: 05/08/16 Progress towards Goal:: Met Goal #3: Pt independent and compliant in basic HEP. Goal to be met by: 05/08/16 Progress towards Goal:: Progressing Goal #4: Muscle tone left upper traps decreased to minimal. 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 HEP to maintain level of function at discharge. Goal to be met by: 05/24/16 Progress towards goal: Progressing Goal #2: Score on UE functional scale improved to <15% impairment. Goal to be met by: 05/24/16 Progress towards goal: Progressing Goal #3: Left shoulder AROM WFL's to perform all selfcare and ADL's. Goal to be met by: 05/24/16 Progress towards goal: Progressing Goal #4: Pt to demonstrate good postural awareness. Goal to be met by: 05/24/16 Progress towards goal: Progressing Plan PLAN OF CARE EXPIRES ON:: 05/24/16 ORDER # VISITS AND/OR THROUGH DATE: 05/24/16 PLAN: Continue Plan of Care
--- NOTE | 2016-06-11 14:33 | RS.QUICKDC ---
Discharge from PT Date of Discharge: 06/05/16 Number of Visits: 15 Reason for Discharge: Patient progressed with exercise for the left shoulder post-op. She reported she was not feeling well during last session and upon checking BP in Cardiopulmonary Department she was take no ER. Patient called the next week and stated she was to stop therapy at this time per her family physician. Discharge at this time.
== END 2016-05-22 ==
PROVIDERS: ATTEND Orthopaedic Surgery
DX: M25.612 Stiffness of left shoulder, not elsewhere classified (principal); M25.512 Pain in left shoulder; Z98.890 Other specified postprocedural states

== ENCOUNTER 2016-05-11 11:57 | Emergency (ER) | payer OTHER ==
[2016-05-11 12:02] VITALS: BP 199/112; TEMP 98.7; BMI 31.9
[2016-05-11] MEDS ORDERED: CATAPRES PO STA (12:25)
[2016-05-11 12:44] LABS: BASOPHILS # (AUTO) 0.1 K/uL (0-0.2); BASOPHILS % (AUTO) 0.8 % (0.0-3.0); EOSINOPHILS # (AUTO) 0.4 K/ul (0.0-0.7); EOSINOPHILS % (AUTO) 4.5 % (0.0-7.0); HEMATOCRIT 39.8 % (37.0-47.0); HEMOGLOBIN 13.5 g/dl (12.0-16.0); IMMATURE GRANULOCYTE % (AUTO) 0.5 % (0.0-5.0); LYMPHOCYTES # (AUTO) 2.1 K/uL (0.60-3.4); LYMPHOCYTES % (AUTO) 24.7 (10.0-50.0); MEAN CORPUSCULAR HEMOGLOBIN 32.8 pg (27.0-31.0); MEAN CORPUSCULAR HGB CONC 33.9 (31.8-35.4); MEAN CORPUSCULAR VOLUME 96.6 fl (81.0-99.0); MONOCYTES # (AUTO) 0.4 K/uL (0.4-2.0); MONOCYTES % (AUTO) 5.1 (0-10); NEUTROPHILS # (AUTO) 5.5 K/ul (2.0-6.9); NEUTROPHILS % (AUTO) 64.4; PLATELET COUNT 311 10^3/uL (140-440); RED BLOOD COUNT 4.12 10^6/ul (4.20-5.40); WHITE BLOOD COUNT 8.49 K/ul (4.6-10.2)
[2016-05-11 13:32] LABS: ALANINE AMINOTRANSFERASE 33 U/L (12-78); ALBUMIN 4.3 g/dL (3.4-5.0); ALBUMIN/GLOBULIN RATIO 1.26; ALKALINE PHOSPHATASE 92 U/L (42-98); ANION GAP 18.2; ASPARTATE AMINO TRANSFERASE 31 U/L (15-37); BLOOD UREA NITROGEN 16 mg/dL (7-18); BUN/CREATININE RATIO 18.39; CALCIUM 9.6 mg/dL (8.2-10.2); CARBON DIOXIDE 25 mmol/L (21-32); CHLORIDE 100 mmol/L (98-107); CREATINE KINASE 539 U/L; CREATININE 0.87 mg/dL (0.60-1.30); GLUCOSE 188 mg/dL (70-110); POTASSIUM 4.2 mmol/L (3.5-5.10); SODIUM 139 mmol/L (136-145); TOTAL PROTEIN 7.7 g/dL (6.4-8.2)
[2016-05-11 13:35] LABS: CREATINE KINASE MB 9.6 ng/ml (0.0-3.6)
[2016-05-11] MEDS ORDERED: COREG PO STA (13:52)
[2016-05-11] MEDS ORDERED: NORVASC PO STA (13:52)
--- NOTE | 2016-05-11 13:59 | ED.PDOC ---
General ED Provider: Dr. BEATRIZ BULLOCK-ER Chief Complaint: Palpitations Stated Complaint: i was in pt and gettin estim and my heart started racing Time Seen by Physician: 12:00 Mode of Arrival: Wheelchair Information Source: Patient Exam Limitations: No limitations Primary Care Provider: ANNAMARIE STEVENS Nursing and Triage Documentation Reviewed and Agree: Yes Cardiovascular Complaint Exam - Palpitations Complaint/Exam Onset/Duration: 25 min Symptoms Are: Still present Timing: Intermittent Initial Severity: Mild Current Severity: Mild Character: Reports: Fast, Pounding Aggravating: Reports: None Alleviating: Reports: None Associated Signs and Symptoms: Denies: Lightheadedness, Dizziness, Syncope, Chest pain, Shortness of breath, Diaphoresis, Nausea, Vomiting Related Surgical History: Reports: Cardiac Cath Cardiac Risk Factors: Reports: Hypertension, Diabetes Pulmonary Embolism Risk Factors: Reports: None Atrial Fibrillation Risk Factors: Reports: Hypertension Thyroid Exam: Normal Differential Diagnoses: Cardiomyopathy Quality Indicator For Non-Traumatic Chest Pain/Syncope: EKG Performed Review of Systems - Review Of Systems Constitutional: Reports: No symptoms Eyes: Reports: No symptoms Ears, Nose, Mouth, Throat: Reports: No symptoms Respiratory: Reports: No symptoms Cardiac: Reports: Palpitations GI: Reports: No symptoms : Reports: No symptoms Musculoskeletal: Reports: No symptoms Skin: Reports: No symptoms Neurological: Reports: No symptoms Endocrine: Reports: No symptoms Hematologic/Lymphatic: Reports: No symptoms All Other Systems: Reviewed and Negative Past Medical History - Past Medical History Previously Healthy: Yes Endocrine: Reports: DM 1, Hypothyroid, Dyslipidemia Cardiovascular: Reports: Hypertension Respiratory: Reports: None Hematological: Reports: None Gastrointestinal: Reports: Gallstones Genitourinary: Reports: None Neuro/Psych: Reports: TIA, Anxiety, Depression Musculoskeletal: Reports: None Cancer: Reports: None Last Menstrual Period: no longer has them Other Pertinent Past Medical History: TONSILLS, - Surgical History General Surgical History: Reports: Orthopedic, Other, Tonsillectomy - Family History Family History: Reports: Unknown - Social History Smoking Status: Never smoker Hx Substance Use: No Alcohol Screening: None Physical Exam - Physical Exam Appearance: Well-appearing, No pain distress, Well-nourished Eyes: WHIT, EOMI, Conjunctiva clear ENT: Ears normal, Nose normal, Oropharynx normal Neck: Supple Respiratory: Airway patent, Breath sounds clear, Breath sounds equal, Respirations nonlabored Cardiovascular: RRR, Pulses normal GI/: Soft, Nontender, No masses, Bowel sounds normal, No Organomegaly Musculoskeletal: Normal strength Skin: Warm, Dry, Normal color Neurological: Sensation intact, Motor intact, Reflexes intact, Cranial nerves intact, Alert, Oriented Psychiatric: Affect appropriate, Mood appropriate Re-Evaluation - Re-Evaluation Time of Re-Evaluation: 13:58 Status: Improved (no chest pain or dyspnea or nettles) Vital Signs Stable: Yes Pain Level: 0 Lungs: Clear Skin: Warm and Dry Neuro: Alert and Oriented X3 CV: RRR Critical Care Note - Critical Care Note Total Time (mins): 0 Course - Course Hematology/Chemistry: 05/11/16 12:15 05/11/16 12:15 Orders, Labs, Meds: Lab Review 05/11/16 12:15 WBC 8.49 RBC 4.12 L Hgb 13.5 Hct 39.8 MCV 96.6 MCH 32.8 H MCHC 33.9 RDW Coeff of Elva 14.6 Plt Count 311 Immature Gran % (Auto) 0.5 Neut % (Auto) 64.4 Lymph % (Auto) 24.7 [place] % (Auto) 5.1 Eos % (Auto) 4.5 Baso % (Auto) 0.8 Immature Gran # (Auto) 0.0 Neut # 5.5 Lymph # 2.1 [place] # 0.4 Eos # 0.4 Baso # 0.1 D-Dimer 2.21 Sodium 139 Potassium 4.2 Chloride 100 Carbon Dioxide 25 Anion Gap 18.2 BUN 16 Creatinine 0.87 Estimated GFR (MDRD) 68.00 BUN/Creatinine Ratio 18.39 Glucose 188 H Calcium 9.6 Total Bilirubin 0.70 AST 31 ALT 33 Alkaline Phosphatase 92 Total Creatine Kinase 539 CK-MB (CK-2) 9.6 H* CK-MB (CK-2) % 1.10513 Troponin I < 0.0100 Total Protein 7.7 Albumin 4.3 Globulin 3.4 Albumin/Globulin Ratio 1.26 Orders Category Date Time Status EKG-(ED ONLY) Stat CARDIO 05/11/16 12:22 Completed Ic Design Manager [ED PAMPHLET DISTRIBUTOR APPLIED] .ONCE EMERGENCY 05/11/16 12:23 Active CBC W/ AUTO DIFF Stat LAB 05/11/16 12:15 Completed COMPREHENSIVE METABOLIC PANEL Stat LAB 05/11/16 12:15 Completed CREATINE KINASE Stat LAB 05/11/16 12:15 Completed D-DIMER Stat LAB 05/11/16 12:15 Completed TROPONIN I Stat LAB 05/11/16 12:15 Completed Amlodipine Besylate [Norvasc] MEDS 05/11/16 13:52 Discontinued 5 mg PO ONCE STA Carvedilol [Coreg] MEDS 05/11/16 13:52 Discontinued 12.5 mg PO ONCE STA Clonidine HCl [Catapres] MEDS 05/11/16 12:25 Discontinued 0.1 mg PO ONCE STA Medications Discontinued Medications Generic Name Dose Route Start Last Admin Trade Name Vernon PRN Reason Stop Dose Admin Amlodipine Besylate 5 mg 05/11/16 13:52 Norvasc PO 05/11/16 13:53 ONCE STA Carvedilol 12.5 mg 05/11/16 13:52 Coreg PO 05/11/16 13:53 ONCE STA Clonidine 0.1 mg 05/11/16 12:25 05/11/16 12:33 Catapres PO 05/11/16 12:26 0.1 mg ONCE STA Administration Vital Signs: Temp Pulse Resp BP Pulse Ox 05/11/16 11:58 98.7 F 70 20 199/112 H 99 CARITO Risk Score CARITO Risk Score: Risk Score Odds of by 30D 0 0.1 (0.1-0.2) 1 0.3 (0.2-0.3) 2 0.4 (0.3-0.5) 3 0.7 (0.6-0.9) 4 1.2 (1.0-1.5) 5 2.2 (1.9-2.6) 6 3.0 (2.5-3.6) 7 4.8 (3.8-6.1) Departure - Departure Time of Disposition: 13:59 Disposition: HOME SELF-CARE Discharge Problem: Palpitations Instructions: Palpitations (ED) Condition: Fair Pt referred to PMD for follow-up: Yes Additional Instructions: rest today-return if any chest pain Allergies/Adverse Reactions: Allergies cephalexin monohydrate [From Keflex] Adverse Reaction (Verified 03/29/16 09:40) Sulfa (Sulfonamide Antibiotics) Adverse Reaction (Verified 03/29/16 09:40) sulfamethoxazole [From Bactrim] Adverse Reaction (Verified 03/29/16 09:40) trimethoprim [From Bactrim] Adverse Reaction (Verified 03/29/16 09:40) Home Medications: Ambulatory Orders Aspirin [Ecotrin] 81 mg PO DAILY 07/25/14 Insulin Glargine,Hum.rec.anlog [Lantus] 80 units SQ BEDTIME 07/25/14 Levetiracetam [Keppra] 250 mg PO BID 07/25/14 Levothyroxine Sodium [Synthroid] 175 mcg PO DAILY 07/25/14 Venlafaxine HCl [Effexor Xr] 75 mg PO DAILY 07/25/14 Clopidogrel Bisulfate [Clopidogrel] 75 mg PO DAILY 02/18/15 Insulin Lispro [Humalog] 8 unit SQ TIDWM PRN 02/18/15 Simvastatin [Simvastatin] 20 mg PO BEDTIME 02/18/15 Hydrocodone/Acetaminophen [Lortab 5-325 mg Tablet] 5 - 325 mg PO Q6H PRN Albuterol Sulfate 0.083% Neb [Albuterol 0.083% Neb] 1 vial NEB BID 03/24/16 Albuterol Sulfate [Proventil Hfa] 2 puff INH Q4HR PRN 03/24/16 Budesonide/Formoterol Fumarate [Symbicort 160-4.5 Mcg Inhaler] 2 puff INH BID Lisinopril [Prinivil] 20 mg PO DAILY 03/29/16 Carvedilol [Coreg] 6.25 mg PO BIDWM 05/11/16 Doxycycline Hyclate 100 mg PO BIDAC 05/11/16 Disposition Discussed With: Patient, Family
== END 2016-05-11 14:19 | disposition home or self-care (01) ==
LOC: ED 11:57
DX: R00.2 Palpitations (principal); I10 Essential (primary) hypertension; E10.9 Type 1 diabetes mellitus without complications; E03.9 Hypothyroidism, unspecified; E78.5 Hyperlipidemia, unspecified; Z86.73 Personal history of transient ischemic attack (TIA), and cerebral infarction without residual deficits; Z79.899 Other long term (current) drug therapy; M25.612 Stiffness of left shoulder, not elsewhere classified; M25.512 Pain in left shoulder; Z98.890 Other specified postprocedural states
CPT/HCPCS: 36415; 80053; 82550; 82553; 84484; 85025; 85379; 93005; 93010; 99283

== ENCOUNTER 2016-06-08 09:58 | Outpatient (CLI) ==
--- NOTE | 2016-06-08 11:46 | MAMMO ---
EXAM: Left breast mammogram and ultrasound HISTORY: Breast mass, breast redness COMPARISON: 02/24/2016 and 04/29/2007 FINDINGS: Digital CC and MLO views left breast and spot compression CC and MLO views of the left br east were performed in the region of palpable abnormality, left central superior breast. There is a ovoid reniform nodule in the left upper outer quadrant. There are benign breast calcifications. Ot herwise, no mass, asymmetry, or distortion is visualized. No skin thickening identified. Left breast ultrasound was performed. In the left breast 12 o'clock position and 6 cm from the nipp le, there is an area of shadowing artifact without mass lesion identified. At the 1 o'clock positio n and 16 cm from the nipple, there is a normal benign appearing intramammary lymph node, measuring 0 .6 x 1.1 x 0.7 cm and corresponding with the nodule identified on mammogram. IMPRESSION: No mammographic abnormality identified in the region of clinical concern. No skin thickening identi fied on mammogram. Ultrasound in the region of clinical concern demonstrates an area of shadowing a rtifact without mass identified. This may represent an area of fat necrosis. Follow-up mammogram a nd ultrasound is recommended in 6 weeks following clinical treatment of left breast redness that may represent mastitis/cellulitis, or sooner as clinically indicated, with clinical follow-up recommend ed BIRADS category 3, probably benign
== END 2016-06-08 09:59 | disposition home or self-care (01) ==
LOC: RAD 09:58
PROVIDERS: ATTEND Family Medicine
DX: N60.19 Diffuse cystic mastopathy of unspecified breast (principal); N63 Unspecified lump in breast

== ENCOUNTER 2016-07-06 07:53 | Outpatient (CLI) | payer OTHER ==
--- NOTE | 2016-07-06 08:56 | DI ---
EXAM: Chest two views HISTORY: Cough COMPARISON: 03/29/2016 TECHNIQUE: Two views of the chest were performed FINDINGS: There is interstitial prominence/reticulation seen bilaterally, greatest at the right gr eater than left lung bases. No focal consolidation. There is no pleural effusion or pneumothorax. The heart is normal in size. The mediastinal contour is normal. There are no acute abnormalities of the bones. IMPRESSION: Nonspecific interstitial changes that may represent infectious pneumonitis or bronchiol itis. Recommend clinical correlation and radiographic follow-up.
== END 2016-07-06 07:54 | disposition home or self-care (01) ==
LOC: RAD 07:53
PROVIDERS: ATTEND Family Medicine
DX: J40 Bronchitis, not specified as acute or chronic (principal)

== ENCOUNTER 2016-07-27 08:49 | Outpatient (CLI) ==
--- NOTE | 2016-07-27 09:27 | MAMMO ---
EXAM: Left digital diagnostic mammogram History: Follow-up left breast mass. Persistent left breast palpable abnormality Comparison: Left diagnostic mammogram 06/08/2016 Findings: MLO and CC views of the left breast demonstrate scattered fibroglandular breast parenchym a. Stable benign lymph node within the upper-outer quadrant. Biopsy clip again seen. Stable benig n bilateral breast calcifications. There are no dominant masses. Impression: Although no mammographic abnormalities are identified to correlate to the palpable area , recommend further evaluation with left breast ultrasound. BIRADS 0
--- NOTE | 2016-07-27 09:37 | US ---
EXAM: Left breast ultrasound. History: Left breast palpable abnormality. Comparison: Left breast ultrasound 06/08/2016 Technique: Multiple sonographic images through the left breast were obtained. Color duplex Doppler was used to interrogate vascular flow. Findings: At 12 o'clock 6 cm from nipple there is a possible mass measuring 1.5 cm x 0.8 cm x 1.3 c m that is probably not significantly changed compared to the prior study. This area does demonstrat e shadowing. This correlates with the palpable event. Impression: 12 o'clock left breast possible mass. Recommend further evaluation with breast MRI. BIRADS 0
== END 2016-07-27 08:50 | disposition home or self-care (01) ==
LOC: RAD 08:49
PROVIDERS: ATTEND Family Medicine
DX: N63 Unspecified lump in breast (principal)

== ENCOUNTER 2016-08-09 06:42 | Emergency (ER) | payer OTHER ==
[2016-08-09 06:54] VITALS: BP 158/93; TEMP 97.6; BMI 31.6
--- NOTE | 2016-08-09 07:41 | DI ---
EXAM: Radiographs, pelvis HISTORY: Initial presentation for pelvic trauma due to a fall. COMPARISON: CT 07/28/2015. TECHNIQUE: Single frontal view. FINDINGS: Bone mineralization is normal. There is no fracture or dislocation. Osteoarthritic almodovar ges of the hips noted. Lower lumbar degenerative changes are incompletely imaged. No localized sof t tissue abnormality identified. IMPRESSION: No fracture or dislocation.
--- NOTE | 2016-08-09 07:41 | DI ---
EXAM: Two views of the right hip. History: Right hip trauma. Findings: No acute fracture or dislocation. The right hip joint space is preserved. No radiopaque foreign bodies. Impression: No acute osseous abnormality.
--- NOTE | 2016-08-09 07:41 | DI ---
EXAM: Four views of the right knee. History: Right knee trauma. Findings: No acute fracture or dislocation. Grossly intact right total knee arthroplasty hardware. Impression: No acute osseous abnormality.
--- NOTE | 2016-08-09 07:53 | ED.PDOC ---
General ED Provider: Dr. ELIANE HARRISON Chief Complaint: Extremity Pain/Injury Stated Complaint: right hip pain right knee pain Time Seen by Physician: 07:00 (fall 2 days ago) Mode of Arrival: Walk-In Information Source: Patient Exam Limitations: No limitations Primary Care Provider: ANNAMARIE STEVENS Nursing and Triage Documentation Reviewed and Agree: Yes (MAY WOOD AT BEDSIDE AT ALL TIMES) Trauma/Injury Complaint Exam - Trauma Complaint/Exam Location of Pain or Injury: Reports: RLE (hip , knee ), Other Mechanism of Injury: Reports: Fall (2 days ago) Onset/Duration: 2 days Symptoms Are: Still present Timing of Treatment: Hours, Day Initial Severity: Mild Current Severity: Mild Character: Reports: Aching Aggravating: Reports: Movement Alleviating: Reports: Rest Associated Signs and Symptoms: Denies: LOC, Confusion, Memory loss, Lethargy, Vomiting, Bleeding, Bruising, Swelling, Extremity disuse, Painful respiration, Hoarseness, Dysphagia, Hemoptysis, Significant blood loss Penetrating Injury Risk Factors: Reports: None Related Surgical History: Reports: None Nexus Low Risk Criteria: No post-midline CS tender, No evidence of intoxicat., No Altered LOC, No focal neuro deficit, No distracting injuries Immobilization Removed Post Exam: No Glascow Coma Scale (see protocol): 15 Differential Diagnoses: Fracture, Sprain, Strain Review of Systems - Review Of Systems Constitutional: Reports: No symptoms Eyes: Reports: No symptoms Ears, Nose, Mouth, Throat: Reports: No symptoms Respiratory: Reports: No symptoms Cardiac: Reports: No symptoms GI: Reports: No symptoms : Reports: No symptoms Musculoskeletal: Reports: Joint pain (hip and knee). Denies: Back pain, Neck pain Skin: Reports: No symptoms Neurological: Reports: No symptoms Endocrine: Reports: No symptoms Hematologic/Lymphatic: Reports: No symptoms All Other Systems: Reviewed and Negative Past Medical History - Past Medical History Previously Healthy: Yes Endocrine: Reports: DM 1, Hypothyroid, Dyslipidemia Cardiovascular: Reports: Hypertension Respiratory: Reports: None Hematological: Reports: None Gastrointestinal: Reports: Gallstones Genitourinary: Reports: None Neuro/Psych: Reports: TIA, Anxiety, Depression Musculoskeletal: Reports: None Cancer: Reports: None Last Menstrual Period: 2013 Other Pertinent Past Medical History: TONSILLS, - Surgical History General Surgical History: Reports: Orthopedic, Other, Tonsillectomy - Family History Family History: Reports: Unknown - Social History Smoking Status: Never smoker Hx Substance Use: No Alcohol Screening: None - Immunizations Tetanus Shot up to Date: Yes Physical Exam - Physical Exam Appearance: Well-appearing, No pain distress, Well-nourished Eyes: WHIT, EOMI, Conjunctiva clear ENT: Ears normal, Nose normal, Oropharynx normal Respiratory: Airway patent, Breath sounds clear, Breath sounds equal, Respirations nonlabored Cardiovascular: RRR, Pulses normal, No rub, No murmur GI/: Soft, Nontender, No masses, Bowel sounds normal, No Organomegaly Musculoskeletal: Normal strength, ROM intact, No edema, No calf tenderness (no vertebral point tenderness NEGATIVE PAIN ALONG ENTIRE SPINE) Skin: Warm, Dry, Normal color Neurological: Sensation intact, Motor intact, Reflexes intact, Cranial nerves intact, Alert, Oriented Psychiatric: Affect appropriate, Mood appropriate Interpretation - Radiology Interpretation Radiology Interpretation By: Radiologist Radiology Results: No acute changes Critical Care Note - Critical Care Note Total Time (mins): 0 Course - Course Orders, Labs, Meds: Orders Category Date Time Status HIP, RIGHT 2 VIEWS Stat RADS 08/09/16 07:12 Completed KNEE, RIGHT 4 VIEWS Stat RADS 08/09/16 07:12 Completed PELVIS 1 OR 2 VIEWS Stat RADS 08/09/16 07:12 Completed Vital Signs: Temp Pulse Resp BP Pulse Ox 08/09/16 06:43 97.6 F 72 20 158/93 H 97 Departure - Departure Time of Disposition: 07:53 Disposition: HOME SELF-CARE Discharge Problem: Injury of lower extremity Instructions: Hip Pain (ED), Arthralgia (ED) Condition: Good Pt referred to PMD for follow-up: No Additional Instructions: Please call your Family Physician as soon as possible to schedule a follow-up appointment. Allergies/Adverse Reactions: Allergies cephalexin monohydrate [From Keflex] Adverse Reaction (Verified 08/09/16 06:53) Sulfa (Sulfonamide Antibiotics) Adverse Reaction (Verified 08/09/16 06:53) sulfamethoxazole [From Bactrim] Adverse Reaction (Verified 08/09/16 06:53) trimethoprim [From Bactrim] Adverse Reaction (Verified 08/09/16 06:53) Home Medications: Ambulatory Orders Aspirin [Ecotrin] 81 mg PO DAILY 07/25/14 Insulin Glargine,Hum.rec.anlog [Lantus] 80 units SQ BEDTIME 07/25/14 Levetiracetam [Keppra] 250 mg PO BID 07/25/14 Levothyroxine Sodium [Synthroid] 175 mcg PO DAILY 07/25/14 Venlafaxine HCl [Effexor Xr] 75 mg PO DAILY 07/25/14 Clopidogrel Bisulfate [Clopidogrel] 75 mg PO DAILY 02/18/15 Simvastatin [Simvastatin] 20 mg PO BEDTIME 02/18/15 Hydrocodone/Acetaminophen [Lortab 5-325 mg Tablet] 5 - 325 mg PO Q6H PRN Albuterol Sulfate 0.083% Neb [Albuterol 0.083% Neb] 1 vial NEB BID PRN 03/24/16 Albuterol Sulfate [Proventil Hfa] 2 puff INH Q4HR PRN 03/24/16 Budesonide/Formoterol Fumarate [Symbicort 160-4.5 Mcg Inhaler] 2 puff INH BID Lisinopril [Prinivil] 20 mg PO DAILY 03/29/16 Carvedilol [Coreg] 6.25 mg PO BIDWM 05/11/16 Hydrocodone/Acetaminophen [[place] 5-325 Tablet] 1 each PO Q6HR PRN #7 tablet Insuln Asp Prt/Insulin Aspart [Novolog Mix 70-30 Insulin] 10 unit SUBCUT TIDWM 08/09/16
== END 2016-08-09 08:06 | disposition home or self-care (01) ==
LOC: ED 06:42
DX: M25.551 Pain in right hip (principal); M25.561 Pain in right knee; W19.XXXA Unspecified fall, initial encounter
CPT/HCPCS: 99283

== ENCOUNTER 2016-08-14 23:03 | Emergency (ER) ==
[2016-08-14 23:12] VITALS: BP 171/91; TEMP 97.6; BMI 31.6
[2016-08-14] MEDS ORDERED: ZOFRAN 4 MG/2 ML IM STA (23:57)
[2016-08-14] MEDS ORDERED: MORPHINE 4 MG/ML SYRINGE IM STA (23:57)
--- NOTE | 2016-08-15 00:01 | ED.PDOC ---
General ED Provider: Dr. IRMA DICKSON Chief Complaint: Hip Pain/Injury Stated Complaint: Patient states she fell two weeks ago had x rays that were negative. She however continues to have bilateral lower extremity pain and spasms. Time Seen by Physician: 23:50 Mode of Arrival: Walk-In Information Source: Patient Exam Limitations: No limitations Primary Care Provider: ANNAMARIE STEVENS Nursing and Triage Documentation Reviewed and Agree: Yes Review of Systems - Review Of Systems Constitutional: Reports: No symptoms Eyes: Reports: No symptoms Ears, Nose, Mouth, Throat: Reports: No symptoms Respiratory: Reports: No symptoms Cardiac: Reports: No symptoms GI: Reports: No symptoms : Reports: No symptoms Musculoskeletal: Reports: Back pain, Muscle stiffness Skin: Reports: No symptoms Neurological: Reports: No symptoms Endocrine: Reports: No symptoms Hematologic/Lymphatic: Reports: No symptoms All Other Systems: Reviewed and Negative Past Medical History - Past Medical History Previously Healthy: Yes Endocrine: Reports: DM 1, Hypothyroid, Dyslipidemia Cardiovascular: Reports: Hypertension Respiratory: Reports: None Hematological: Reports: None Gastrointestinal: Reports: Gallstones Genitourinary: Reports: None Neuro/Psych: Reports: TIA, Anxiety, Depression Musculoskeletal: Reports: None Cancer: Reports: None Last Menstrual Period: N/A Other Pertinent Past Medical History: TONSILLS, - Surgical History General Surgical History: Reports: Orthopedic, Other, Tonsillectomy - Family History Family History: Reports: Unknown - Social History Smoking Status: Never smoker Hx Substance Use: No Alcohol Screening: None - Immunizations Tetanus Shot up to Date: Yes Physical Exam - Physical Exam Appearance: Well-nourished Ill-appearing: Mild Pain Distress: Severe Neck: Supple Respiratory: Airway patent, Breath sounds clear, Breath sounds equal, Respirations nonlabored Cardiovascular: RRR, Pulses normal, No rub, No murmur GI/: Soft, Nontender, No masses, Bowel sounds normal, No Organomegaly Musculoskeletal: Normal strength, ROM intact, No edema, No calf tenderness Skin: Warm, Dry, Normal color Neurological: Sensation intact, Motor intact, Alert, Oriented Psychiatric: Anxious Critical Care Note - Critical Care Note Total Time (mins): 0 Course - Course Hematology/Chemistry: 08/14/16 00:05 Orders, Labs, Meds: Lab Review 08/14/16 00:05 Sodium 139 Potassium 4.0 Chloride 106 Carbon Dioxide 21 Anion Gap 16.0 BUN 17 Creatinine 0.87 Estimated GFR (MDRD) 68.00 BUN/Creatinine Ratio 19.54 Glucose 157 H Calcium 9.4 Magnesium 2.1 Total Bilirubin 0.67 AST 30 ALT 31 Alkaline Phosphatase 74 Total Protein 7.1 Albumin 3.9 Globulin 3.2 Albumin/Globulin Ratio 1.22 Orders Category Date Time Status CMP [COMPREHENSIVE METABOLIC PANEL] Stat LAB 08/14/16 00:05 Completed MAGNESIUM Stat LAB 08/14/16 00:05 Completed Morphine Sulfate [Morphine 4 mg/ml Syringe] MEDS 08/14/16 23:57 Discontinued 4 mg IM ONCE STA Ondansetron HCl/Pf [Zofran 4 mg/2 ml] MEDS 08/14/16 23:57 Discontinued 4 mg IM ONCE STA Medications Discontinued Medications Generic Name Dose Route Start Last Admin Trade Name Freq PRN Reason Stop Dose Admin Morphine Sulfate 4 mg 08/14/16 23:57 08/15/16 00:05 Morphine 4 Mg/Ml Syringe IM 08/14/16 23:58 4 mg ONCE STA Administration Ondansetron HCl 4 mg 08/14/16 23:57 08/15/16 00:05 Zofran 4 Mg/2 Ml IM 08/14/16 23:58 4 mg ONCE STA Administration Vital Signs: Temp Pulse Resp BP Pulse Ox 08/14/16 23:03 97.6 F 76 18 171/91 H 97 Departure - Departure Time of Disposition: 23:59 Disposition: HOME SELF-CARE Discharge Problem: Hip pain, Musculoskeletal back pain Instructions: Musculoskeletal Pain (ED) Condition: Fair Pt referred to PMD for follow-up: Yes Additional Instructions: Take medications as prescribed Follow up with PCP in 3 days Prescriptions: Hydrocodone/Acetaminophen [[place] 5-325 Tablet] 1 tab PO Q6HR PRN #12 tablet PRN Reason: PAIN Allergies/Adverse Reactions: Allergies cephalexin monohydrate [From Keflex] Adverse Reaction (Verified 08/14/16 23:12) Sulfa (Sulfonamide Antibiotics) Adverse Reaction (Verified 08/14/16 23:12) sulfamethoxazole [From Bactrim] Adverse Reaction (Verified 08/14/16 23:12) trimethoprim [From Bactrim] Adverse Reaction (Verified 08/14/16 23:12) Home Medications: Ambulatory Orders Aspirin [Ecotrin] 81 mg PO DAILY 07/25/14 Insulin Glargine,Hum.rec.anlog [Lantus] 80 units SQ BEDTIME 07/25/14 Levetiracetam [Keppra] 250 mg PO BID 07/25/14 Levothyroxine Sodium [Synthroid] 175 mcg PO DAILY 07/25/14 Venlafaxine HCl [Effexor Xr] 75 mg PO DAILY 07/25/14 Clopidogrel Bisulfate [Clopidogrel] 75 mg PO DAILY 02/18/15 Simvastatin [Simvastatin] 20 mg PO BEDTIME 02/18/15 Hydrocodone/Acetaminophen [Lortab 5-325 mg Tablet] 5 - 325 mg PO Q6H PRN Albuterol Sulfate 0.083% Neb [Albuterol 0.083% Neb] 1 vial NEB BID PRN 03/24/16 Albuterol Sulfate [Proventil Hfa] 2 puff INH Q4HR PRN 03/24/16 Budesonide/Formoterol Fumarate [Symbicort 160-4.5 Mcg Inhaler] 2 puff INH BID Carvedilol [Coreg] 6.25 mg PO BIDWM 05/11/16 Hydrocodone/Acetaminophen [[place] 5-325 Tablet] 1 each PO Q6HR PRN #7 tablet Insuln Asp Prt/Insulin Aspart [Novolog Mix 70-30 Insulin] 10 unit SUBCUT TIDWM 08/09/16 Losartan Potassium [Cozaar] 50 mg PO DAILY 08/14/16 Hydrocodone/Acetaminophen [[place] 5-325 Tablet] 1 tab PO Q6HR PRN #12 tablet Disposition Discussed With: Patient
[2016-08-15 00:56] LABS: ALBUMIN 3.9 g/dL (3.4-5.0); ALBUMIN/GLOBULIN RATIO 1.22; BILIRUBIN,TOTAL 0.67 mg/dL (0.00-1.20); BUN/CREATININE RATIO 19.54; CALCIUM 9.4 mg/dL (8.2-10.2); CREATININE 0.87 mg/dL (0.60-1.30); MAGNESIUM 2.1 mg/dL (1.7-2.2); TOTAL PROTEIN 7.1 g/dL (6.4-8.2)
== END 2016-08-15 00:47 | disposition home or self-care (01) ==
LOC: ED 23:03
DX: M25.559 Pain in unspecified hip (principal); M54.9 Dorsalgia, unspecified; M79.605 Pain in left leg; M79.604 Pain in right leg; M62.838 Other muscle spasm; W19.XXXD Unspecified fall, subsequent encounter; I10 Essential (primary) hypertension; E10.9 Type 1 diabetes mellitus without complications; E03.9 Hypothyroidism, unspecified; E78.5 Hyperlipidemia, unspecified; Z79.899 Other long term (current) drug therapy
CPT/HCPCS: 36415; 80053; 83735; 96372; 99283

== ENCOUNTER 2016-12-17 00:17 | Emergency (ER) ==
[2016-12-17] MEDS ORDERED: DECADRON 4 MG/ML SDV IM STA (00:24)
[2016-12-17] MEDS ORDERED: TORADOL IM STA (00:24)
[2016-12-17] MEDS ORDERED: DILAUDID 2 MG/ML SYRINGE IM STA (00:24)
[2016-12-17] MEDS ORDERED: PHENERGAN 25 MG/ML VIAL IM STA (00:24)
[2016-12-17 00:25] VITALS: BP 165/79; TEMP 97.7; BMI 33.4
[2016-12-17 00:41] LABS: BILIRUBIN,URINE Negative (NEGATIVE); KETONES,URINE Negative (NEGATIVE); LEUKOCYTE ESTERASE ,URINE 1+ (NEGATIVE); NITRITE,URINE Negative (NEGATIVE); PH,URINE 5.5 (5-9); PROTEIN,URINE Negative (NEGATIVE); URINE, BLOOD Trace-lysed (NEGATIVE)
[2016-12-17 00:47] LABS: ADD URINE MICROSCOPIC YES
[2016-12-17 00:48] LABS: BACTERIA,URINE TRACE (NOT PRESENT)
--- NOTE | 2016-12-17 01:16 | CT ---
EXAM: CT scan abdomen pelvis without contrast HISTORY: Left flank pain COMPARISON: CT scan abdomen pelvis 07/29/2015 FINDINGS: Contiguous axial images obtained from lung bases to the symphysis pubis without contrast u tilizing 3-mm collimation. Sagittal and coronal reconstructions were imaged and reviewed.. The visu alized lung bases are clear.. Diffuse fatty infiltration is noted throughout the liver. There has b een prior cholecystectomy. The pancreas spleen and adrenal glands have normal unenhanced CT appearan ce. Atherosclerotic changes are seen involving the aorta without aneurysm formation.. The kidneys a re morphologically normal. There is a normal appendix.. The bladder is unremarkable. There is no e vidence of free fluid or inflammatory changes. There is minimal diverticulosis without diverticuliti s. There is a tiny umbilical hernia containing only fat. IMPRESSION: Fatty liver. Prior cholecystectomy. ASVD without aneurysm. Diverticulosis without diverticulitis. No evidence of free fluid or inflammatory changes.
--- NOTE | 2016-12-17 01:22 | CT ---
EXAM: CT scan pelvis without contrast HISTORY: Back pain COMPARISON: NONE. FINDINGS: Contiguous axial images were obtained through the pelvis without contrast utilizing 3-mm c ollimation. Sagittal and coronal reconstructions were imaged and reviewed.. Facet arthropathy is see n within the lower lumbar spine.. Degenerative changes are seen within the left SI joint. Minimal d egenerative changes are seen within both hip joints left greater than right. IMPRESSION: No acute findings. Facet arthropathy lower lumbar spine. Degenerative changes are seen within both hip joints and the left SI joint.
--- NOTE | 2016-12-17 01:22 | CT ---
EXAM: CT of the lumbar spine without contrast. HISTORY: Low back pain with sciatica. PROCEDURE: Contiguous axial CT images of the lumbar spine without contrast with coronal and sagittal reformats. FINDINGS: There is mild levoscoliosis of the lumbar spine. There is normal alignment of the lumbar v ertebral bodies and facets. The vertebral body heights are maintained. There is disc space narrowin g at L1-L2. There is multilevel facet arthropathy. There is vacuum phenomenon between the L3 and L4 facets. There are small disc bulges at L3-4 and L4-5. Impression: Normal alignment of the lumbar spine with degenerative changes as described. Small disc bulges at L3-4 and L4-5.
--- NOTE | 2016-12-17 01:50 | ED.PDOC ---
General ED Provider: Dr. BEATRIZ BULLOCK-ER Chief Complaint: Back Pain Stated Complaint: iim hurting and its gong down my left leg Time Seen by Physician: 00:20 Mode of Arrival: Walk-In Information Source: Patient, Family Exam Limitations: No limitations Primary Care Provider: ANNAMARIE HOLLIS Nursing and Triage Documentation Reviewed and Agree: Yes Musculoskeletal Complaint Exam - Back Pain Complaint/Exam Mechanism of Injury: Reports: No known trauma Onset/Duration: several hours Symptoms Are: Still present Timing: Constant Initial Severity: Mild Current Severity: Moderate Location: Reports: Discrete Character: Reports: Dull, Aching, Spasmodic Aggravating: Reports: Lifting, Bending, Walking Alleviating: Reports: None Associated Signs and Symptoms: Denies: Swelling, Redness, Bruising, Fever, Weakness, Numbness, Tingling, Abdominal pain, Flank pain, Bladder incontinence, Bowel incontinence, Weight loss, Pain with weight bearing Related History: Reports: Similar episode TAD Risk Factors: Reports: Hypertension AAA Risk Factors: Reports: None Cauda Equina Risk Factors: Reports: None Epidural Abcess Risk Factors: Reports: None Related Surgical History: Reports: None Focal Tenderness: Yes Paraspinal Muscle Tenderness: No Paraspinal Muscle Spasm: No Scoliosis: No Lordosis: No Kyphosis: No SLR Test: Right Negative, Left Negative Hip Motion Testing Pain: Right Negative, Left Negative Focal Weakness: Present: None Focal Sensory Loss: Present: None Gait: Present: Abnormal Differential Diagnoses: Fracture, Herniated Disk Review of Systems - Review Of Systems Constitutional: Reports: No symptoms Eyes: Reports: No symptoms Ears, Nose, Mouth, Throat: Reports: No symptoms Respiratory: Reports: No symptoms Cardiac: Reports: No symptoms GI: Reports: No symptoms : Reports: No symptoms Musculoskeletal: Reports: Back pain Skin: Reports: No symptoms Neurological: Reports: No symptoms Endocrine: Reports: No symptoms Hematologic/Lymphatic: Reports: No symptoms All Other Systems: Reviewed and Negative Past Medical History - Past Medical History Previously Healthy: Yes Endocrine: Reports: DM 1, Hypothyroid, Dyslipidemia Cardiovascular: Reports: Hypertension Respiratory: Reports: None Hematological: Reports: None Gastrointestinal: Reports: Gallstones Genitourinary: Reports: None Neuro/Psych: Reports: TIA, Anxiety, Depression Musculoskeletal: Reports: None Cancer: Reports: None Last Menstrual Period: DEC 2013 Other Pertinent Past Medical History: TONSILLS, - Surgical History General Surgical History: Reports: Orthopedic, Other, Tonsillectomy - Family History Family History: Reports: Unknown - Social History Smoking Status: Never smoker Hx Substance Use: No Alcohol Screening: None Lives: With family - Immunizations Tetanus Shot up to Date: Yes Physical Exam - Physical Exam Appearance: Well-appearing, No pain distress, Well-nourished Pain Distress: Moderate Eyes: WHIT, EOMI, Conjunctiva clear ENT: Ears normal, Nose normal, Oropharynx normal Neck: Supple Respiratory: Airway patent Cardiovascular: RRR, Pulses normal, No rub, No murmur GI/: Soft, Nontender, No masses, Bowel sounds normal, No Organomegaly Musculoskeletal: Limited ROM Skin: Warm Neurological: Sensation intact, Alert, Oriented Psychiatric: Affect appropriate, Mood appropriate Interpretation - Radiology Interpretation Radiology Interpretation By: Radiologist Radiology Results: Negative Exam Interpreted: CT Scan Re-Evaluation - Re-Evaluation Time of Re-Evaluation: 01:53 Status: Improved Vital Signs Stable: Yes Pain Level: 2 Appearance: NAD Lungs: Clear Skin: Warm and Dry Neuro: Alert and Oriented X3 CV: RRR Critical Care Note - Critical Care Note Total Time (mins): 0 Course - Course Orders, Labs, Meds: Lab Review 12/17/16 00:35 Urine Color Yellow Urine Clarity Clear Urine pH 5.5 Ur Specific [place] 1.020 Urine Protein Negative Urine Glucose (UA) Trace Urine Ketones Negative Urine Blood Trace-lysed Urine Nitrite Negative Urine Bilirubin Negative Urine Urobilinogen 0.2 Ur Leukocyte Esterase 1+ Urine Microscopic RBC 0-2 Urine Microscopic WBC 2-5 Ur Squamous Epith Cells 2-5 Urine Bacteria Trace Orders Category Date Time Status UA [URINALYSIS C & S IF INDICATED] Stat LAB 12/17/16 00:35 Completed Dexamethasone 4 mg/ml Inj [Decadron 4 mg/ml Sdv] MEDS 12/17/16 00:24 Discontinued 4 mg IM ONCE STA Hydromorphone HCl/Pf [Dilaudid 2 mg/ml Syringe] MEDS 12/17/16 00:24 Discontinued 2 mg IM ONCE STA Ketorolac Tromethamine [Toradol] MEDS 12/17/16 00:24 Discontinued 60 mg IM ONCE STA Promethazine HCl [Phenergan 25 mg/ml Vial] MEDS 12/17/16 00:24 Discontinued 25 mg IM ONCE STA CT ABDOMEN/PELVIS WO CONTRAST Stat RADS 12/17/16 00:[address] LUMBAR SPINE W/O CONTRAST Stat RADS 12/17/16 00:[address] PELVIS W/O CONTRAST Stat RADS 12/17/16 00:24 Completed Medications Discontinued Medications Generic Name Dose Route Start Last Admin Trade Name [place] PRN Reason Stop Dose Admin Dexamethasone Sodium Phosphate 4 mg 12/17/16 00:24 12/17/16 01:00 Decadron 4 Mg/Ml Sdv IM 12/17/16 00:25 4 mg ONCE STA Administration Hydromorphone HCl 2 mg 12/17/16 00:24 12/17/16 01:00 Dilaudid 2 Mg/Ml Syringe IM 12/17/16 00:25 2 mg ONCE STA Administration Ketorolac Tromethamine 60 mg 12/17/16 00:24 12/17/16 01:01 Toradol IM 12/17/16 00:25 60 mg ONCE STA Administration Promethazine HCl 25 mg 12/17/16 00:24 12/17/16 01:00 Phenergan 25 Mg/Ml Vial IM 12/17/16 00:25 25 mg ONCE STA Administration Vital Signs: Temp Pulse Resp BP Pulse Ox 12/17/16 00:18 97.7 F 75 24 165/79 H 95 Departure - Departure Time of Disposition: 01:53 Disposition: HOME SELF-CARE Discharge Problem: Low back pain Qualifiers: Chronicity: acute Back pain laterality: right Sciatica presence: with sciatica Sciatica laterality: sciatica of left side Qualified Code(s): M54.42 - Lumbago with sciatica, left side Instructions: Lumbar Radiculopathy (ED), Acute Low Back Pain (ED) Condition: Good Pt referred to PMD for follow-up: Yes Additional Instructions: norco 7.5mg q 4hrs prjn pain #12--f/u with dr hollis Allergies/Adverse Reactions: Allergies cephalexin monohydrate [From Keflex] Adverse Reaction (Verified 12/17/16 00:26) Sulfa (Sulfonamide Antibiotics) Adverse Reaction (Verified 12/17/16 00:26) sulfamethoxazole [From Bactrim] Adverse Reaction (Verified 12/17/16 00:26) trimethoprim [From Bactrim] Adverse Reaction (Verified 12/17/16 00:26) Home Medications: Ambulatory Orders Aspirin [Ecotrin] 81 mg PO DAILY 07/25/14 Insulin Glargine,Hum.rec.anlog [Lantus] 80 units SQ BEDTIME 07/25/14 Levetiracetam [Keppra] 250 mg PO TID 07/25/14 Venlafaxine HCl [Effexor Xr] 75 mg PO DAILY 07/25/14 Clopidogrel Bisulfate [Clopidogrel] 75 mg PO DAILY 02/18/15 Albuterol Sulfate 0.083% Neb [Albuterol 0.083% Neb] 1 vial NEB BID PRN 03/24/16 Albuterol Sulfate [Proventil Hfa] 2 puff INH Q4HR PRN 03/24/16 Budesonide/Formoterol Fumarate [Symbicort 160-4.5 Mcg Inhaler] 2 puff INH BID Carvedilol [Coreg] 6.25 mg PO BIDWM 05/11/16 Insuln Asp Prt/Insulin Aspart [Novolog Mix 70-30 Insulin] 10 unit SUBCUT TIDWM 08/09/16 Losartan Potassium [Cozaar] 50 mg PO DAILY 08/14/16 Gabapentin [Neurontin] 100 mg PO DAILY 12/17/16 Levothyroxine Sodium [Synthroid] 100 mcg PO QDAC 12/17/16 Spironolactone [Aldactone] 25 mg PO DAILY 12/17/16 Tramadol HCl 50 mg PO DAILY PRN 12/17/16 Disposition Discussed With: Patient, Family
== END 2016-12-17 01:58 | disposition home or self-care (01) ==
LOC: ED 00:17
DX: M54.42 Lumbago with sciatica, left side (principal); I10 Essential (primary) hypertension; Z79.899 Other long term (current) drug therapy
CPT/HCPCS: 81001; 96372; 99283

== ENCOUNTER 2017-03-22 10:00 | Outpatient (RCR) | END 2017-03-24 | LOC: NEWBEG 10:00 | PROVIDERS: ATTEND Psychiatry & Neurology Psychiatry | DX: F41.9 Anxiety disorder, unspecified (principal); F33.1 Major depressive disorder, recurrent, moderate; F43.10 Post-traumatic stress disorder, unspecified | CPT/HCPCS: 90792; 90834; 90853; 99213 ==

== ENCOUNTER 2017-04-02 15:40 | Outpatient (CLI) ==
[2016-12-17 02:15] VITALS: BMI 33.4
--- NOTE | 2017-04-02 16:09 | DI ---
EXAM: LEFT HIP, 2 VIEWS HISTORY: Hip pain FINDINGS: There is mild hip osteoarthritis including mild arthropathy of the lower synovial portions of both sacroiliac joints. No fracture or dislocation is identified. Soft tissues are grossly unre markable. IMPRESSION: Mild hip osteoarthritis.
== END 2017-04-02 15:41 | disposition home or self-care (01) ==
LOC: RAD 15:40
PROVIDERS: ATTEND Family Medicine
DX: M25.552 Pain in left hip (principal)

== ENCOUNTER 2017-04-19 10:00 | Outpatient (RCR) | payer OTHER ==
[2016-12-17 02:15] VITALS: BMI 33.4
== END 2017-04-24 ==
LOC: NEWBEG 10:00
PROVIDERS: ATTEND Psychiatry & Neurology Psychiatry
DX: F41.9 Anxiety disorder, unspecified (principal); F33.1 Major depressive disorder, recurrent, moderate; F43.10 Post-traumatic stress disorder, unspecified
CPT/HCPCS: 90832; 90853; 99213

== ENCOUNTER 2017-04-29 15:08 | Outpatient (CLI) ==
[2016-12-17 02:15] VITALS: BMI 33.4
--- NOTE | 2017-04-29 15:45 | DI ---
EXAM: PA and lateral views of the chest HISTORY: Cough. COMPARISON: X-ray 07/06/2016 and multiple priors FINDINGS: The cardiomediastinal silhouette is normal. There is no pneumothorax or pleural effusion. There is no consolidation, nodule or mass. The osseous structures are stable. There are surgical clips in right upper quadrant. IMPRESSION: No acute cardiopulmonary process
== END 2017-04-29 15:09 | disposition home or self-care (01) ==
LOC: RAD 15:08
PROVIDERS: ATTEND Family Medicine
DX: R05 Cough (principal)

== ENCOUNTER → 2017-05-22 | Outpatient (RCR) | payer OTHER ==
[2016-12-17 02:15] VITALS: BMI 33.4
== END ==
LOC: NEWBEG 04-25 08:40
PROVIDERS: ATTEND Psychiatry & Neurology Psychiatry
DX: F41.9 Anxiety disorder, unspecified (principal); F33.1 Major depressive disorder, recurrent, moderate; F43.10 Post-traumatic stress disorder, unspecified
CPT/HCPCS: 90853; 99213

== ENCOUNTER 2017-06-21 10:00 | Outpatient (RCR) ==
[2016-12-17 02:15] VITALS: BMI 33.4
== END 2017-06-22 ==
LOC: NEWBEG 10:00
PROVIDERS: ATTEND Psychiatry & Neurology Psychiatry
DX: F41.9 Anxiety disorder, unspecified (principal); F33.1 Major depressive disorder, recurrent, moderate; F43.10 Post-traumatic stress disorder, unspecified
CPT/HCPCS: 90853; 99213

== ENCOUNTER 2017-07-19 10:00 | Outpatient (RCR) ==
[2016-12-17 02:15] VITALS: BMI 33.4
== END 2017-07-22 23:59 ==
LOC: NEWBEG 10:00
PROVIDERS: ATTEND Psychiatry & Neurology Psychiatry
DX: F41.9 Anxiety disorder, unspecified (principal); F33.1 Major depressive disorder, recurrent, moderate; F43.10 Post-traumatic stress disorder, unspecified
CPT/HCPCS: 90832; 90853; 99213

== ENCOUNTER 2017-08-21 10:00 | Outpatient (RCR) ==
[2016-12-17 02:15] VITALS: BMI 33.4
== END 2017-08-22 23:59 ==
LOC: NEWBEG 10:00
PROVIDERS: ATTEND Psychiatry & Neurology Psychiatry
DX: F41.9 Anxiety disorder, unspecified (principal); F33.1 Major depressive disorder, recurrent, moderate; F43.10 Post-traumatic stress disorder, unspecified
CPT/HCPCS: 90853; 99213

== ENCOUNTER 2017-08-28 12:46 | Outpatient (POV) | payer OTHER ==
[2016-12-17 02:15] VITALS: BMI 33.4
== END 2017-08-28 17:00 ==
LOC: OUTPT 12:46
PROVIDERS: ATTEND Otolaryngology
DX: H91.90 Unspecified hearing loss, unspecified ear (principal)

== ENCOUNTER 2017-09-18 10:00 | Outpatient (RCR) ==
[2016-12-17 02:15] VITALS: BMI 33.4
== END 2017-09-21 23:59 ==
LOC: NEWBEG 10:00
PROVIDERS: ATTEND Psychiatry & Neurology Psychiatry
DX: F41.9 Anxiety disorder, unspecified (principal); F33.1 Major depressive disorder, recurrent, moderate; F43.10 Post-traumatic stress disorder, unspecified
CPT/HCPCS: 90853; 99213

== ENCOUNTER 2017-10-07 11:03 | Outpatient (CLI) ==
[2016-12-17 02:15] VITALS: BMI 33.4
--- NOTE | 2017-10-07 13:31 | US ---
EXAM: Right lower extremity venous Doppler History: Right lower extremity pain and cellulitis. Technique: Multiple sonographic images through the right lower extremity were obtained. Color duplex Doppler was used to interrogate vascular flow. Findings: The right common femoral, greater saphenous, profunda, superficial femoral, popliteal, hugh daphne, posterior tibial and anterior tibial veins demonstrate spontaneous flow with normal compression and normal augmentation. Impression: No sonographic evidence for deep venous thrombosis.
--- NOTE | 2017-10-07 13:46 | US ---
EXAM: Nonvascular ultrasound of the right lower extremity. History: Right lower extremity pain. Technique: Multiple sonographic images through the right lower extremity were obtained. Color duple x Doppler was used to interrogate vascular flow. Findings: No fluid collections identified. There is subcutaneous edema and skin thickening consiste nt with cellulitis. Impression: Cellulitis of the right lower extremity. No abscess is seen.
== END 2017-10-07 11:04 | disposition home or self-care (01) ==
LOC: RAD 11:03
PROVIDERS: ATTEND Family Medicine
DX: L03.115 Cellulitis of right lower limb (principal); R60.0 Localized edema; M79.604 Pain in right leg
CPT/HCPCS: 76882

== ENCOUNTER 2017-10-21 10:00 | Outpatient (RCR) ==
[2016-12-17 02:15] VITALS: BMI 33.4
== END 2017-10-22 23:59 ==
LOC: NEWBEG 10:00
PROVIDERS: ATTEND Psychiatry & Neurology Psychiatry
DX: F41.9 Anxiety disorder, unspecified (principal); F43.10 Post-traumatic stress disorder, unspecified; F33.1 Major depressive disorder, recurrent, moderate
CPT/HCPCS: 90853; 99214

== ENCOUNTER 2017-10-29 08:17 | Emergency (ER) | payer OTHER ==
[2017-10-29 08:22] VITALS: BP 146/75; TEMP 97.9; BMI 34.0
--- NOTE | 2017-10-29 09:06 | ED.PDOC ---
General ED Provider: Dr. BEATRIZ SMITH Chief Complaint: Back Pain Stated Complaint: Back and Rt sided Rib Pain. States lifing her 40 pound dog into a bathtub and then fell aprox 2 weeks ago. She apparently slipped and fell backwards striking her back and side on the laminate floor. Time Seen by Physician: 08:45 Mode of Arrival: Walk-In Information Source: Patient Exam Limitations: No limitations Primary Care Provider: ANNAMARIE SOFIA Nursing and Triage Documentation Reviewed and Agree: Yes Does patient meet sepsis criteria?: No System Inflammatory Response Syndrome: Not Applicable Sepsis Protocol: For patient's 13 years and over: Temp is 96.8 and below OR 101 and greater Pulse >90 BPM Resp >20/minute Acutely Altered Mental Status Are patient's symptoms suggestive of a new infection, such as: -Pneumonia -Skin, Soft Tissue -Endocarditis -UTI -Bone, Joint Infection -Implantable Device -Acute Abdominal Infection -Wound Infection -Meningitis -Blood Stream Catheter Infection -Unknown Musculoskeletal Complaint Exam - Back Pain Complaint/Exam Mechanism of Injury: Reports: Trauma Onset/Duration: 2 weeks Symptoms Are: Still present Timing: Constant Episodes Lasting: Weeks (2) Initial Severity: Moderate Current Severity: Moderate Location: Reports: Diffuse Character: Reports: Sharp, Aching Aggravating: Reports: Bending Associated Signs and Symptoms: Reports: Bruising TAD Risk Factors: Reports: None AAA Risk Factors: Reports: None Cauda Equina Risk Factors: Reports: None Epidural Abcess Risk Factors: Reports: None Related Surgical History: Reports: None Focal Tenderness: Yes Paraspinal Muscle Tenderness: Yes Paraspinal Muscle Spasm: Yes Scoliosis: No Lordosis: No Kyphosis: No SLR Test: Right Negative, Left Negative Hip Motion Testing Pain: Right Negative, Left Negative Focal Weakness: Present: None Focal Sensory Loss: Present: None Gait: Present: Normal Back Picture: 1 - Rt Mid Thoracic spine Differential Diagnoses: Strain, Other (Contusion , R/O Fracture) Review of Systems - Review Of Systems Constitutional: Reports: No symptoms Eyes: Reports: No symptoms Ears, Nose, Mouth, Throat: Reports: No symptoms Respiratory: Reports: No symptoms Cardiac: Reports: No symptoms GI: Reports: No symptoms : Reports: No symptoms Musculoskeletal: Reports: No symptoms, Back pain, Muscle pain, Muscle stiffness Skin: Reports: No symptoms Neurological: Reports: No symptoms Endocrine: Reports: No symptoms Hematologic/Lymphatic: Reports: No symptoms All Other Systems: Reviewed and Negative Past Medical History - Past Medical History Previously Healthy: Yes Endocrine: Reports: DM 1, Hypothyroid, Dyslipidemia Cardiovascular: Reports: Hypertension Respiratory: Reports: None Hematological: Reports: None Gastrointestinal: Reports: Gallstones Genitourinary: Reports: None Neuro/Psych: Reports: TIA, Anxiety, Depression Musculoskeletal: Reports: None Cancer: Reports: None Last Menstrual Period: none Other Pertinent Past Medical History: TONSILLS, - Surgical History General Surgical History: Reports: Orthopedic, Other, Tonsillectomy - Family History Family History: Reports: Unknown - Social History Smoking Status: Never smoker Hx Substance Use: No Alcohol Screening: None Physical Exam - Physical Exam Appearance: Well-appearing, No pain distress, Well-nourished Eyes: WHIT, EOMI, Conjunctiva clear ENT: Ears normal, Nose normal, Oropharynx normal Respiratory: Airway patent, Breath sounds clear, Breath sounds equal, Respirations nonlabored Cardiovascular: RRR, Pulses normal, No rub, No murmur GI/: Soft, Nontender, No masses, Bowel sounds normal, No Organomegaly Musculoskeletal: Normal strength, ROM intact, No edema, No calf tenderness, Limited ROM (Tenderness over rt mid thoracic region and anterolateral costal region. 2 ecchymotic regions-RUQ/subdiaphramatic lat costal) Skin: Warm, Dry, Normal color Neurological: Sensation intact, Motor intact, Reflexes intact, Cranial nerves intact, Alert, Oriented Psychiatric: Affect appropriate, Mood appropriate Interpretation - Radiology Interpretation Radiology Interpretation By: Radiologist Radiology Results: Negative (Ribs and thoracic spine) Critical Care Note - Critical Care Note Total Time (mins): 0 Course - Course Orders, Labs, Meds: Orders Category Date Time Status RIBS, UNILATERAL RIGHT Stat RADS 10/29/17 08:59 Completed THORACIC SPINE, 3 VIEWS Stat RADS 10/29/17 08:59 Completed Vital Signs: Temp Pulse Resp BP Pulse Ox 10/29/17 08:17 97.9 F 71 20 146/75 H 96 Departure - Departure Time of Disposition: 09:40 Disposition: HOME SELF-CARE Discharge Problem: Strain of chest wall Instructions: Chest Pain (ED), Thoracic Pain (ED) Condition: Good Pt referred to PMD for follow-up: Yes (Dr Sofia 1 week ) IPMP verified?: No Additional Instructions: Apply ice alternating with heat to the areas of discomfort Take prescribed meds Add Tylenol 650 mg every 6 hrs for additional pain control Avoid strenuous lifting Allergies/Adverse Reactions: Allergies cephalexin monohydrate [From Keflex] Adverse Reaction (Verified 10/29/17 08:22) Sulfa (Sulfonamide Antibiotics) Adverse Reaction (Verified 10/29/17 08:22) sulfamethoxazole [From Bactrim] Adverse Reaction (Verified 10/29/17 08:22) trimethoprim [From Bactrim] Adverse Reaction (Verified 10/29/17 08:22) Home Medications: Ambulatory Orders Aspirin [Ecotrin] 81 mg PO DAILY 07/25/14 Venlafaxine HCl [Effexor Xr] 75 mg PO DAILY 07/25/14 Clopidogrel Bisulfate [Clopidogrel] 75 mg PO DAILY 02/18/15 Albuterol Sulfate 0.083% Neb [Albuterol 0.083% Neb] 1 vial NEB BID PRN 03/24/16 Albuterol Sulfate [Proventil Hfa] 2 puff INH Q4HR PRN 03/24/16 Carvedilol [Coreg] 6.25 mg PO BIDWM 05/11/16 Insuln Asp Prt/Insulin Aspart [Novolog Mix 70-30 Insulin] 10 unit SUBCUT TIDWM 08/09/16 Losartan Potassium [Cozaar] 50 mg PO DAILY 08/14/16 Gabapentin [Neurontin] 100 mg PO DAILY 12/17/16 Levothyroxine Sodium [Synthroid] 150 mcg PO QDAC 12/17/16 Spironolactone [Aldactone] 25 mg PO DAILY 12/17/16 Atorvastatin Calcium [Lipitor] 10 mg PO BEDTIME 10/29/17 Doxycycline Hyclate [Doryx] 100 mg PO BID 10/29/17 Fluticasone Propionate [Flonase] 2 spray NS DAILY 10/29/17 Insulin Detemir [Levemir] 80 unit SUBCUT BEDTIME 10/29/17 Meloxicam 15 mg PO DAILY 10/29/17 Omeprazole [Prilosec] 20 mg PO QDAC 10/29/17 Prazosin HCl [Minipress] 1 mg PO BEDTIME 10/29/17 Sodium Chloride [Isabella Nasal [place]] 1 spray NS PRN PRN 10/29/17 Tizanidine HCl [Zanaflex] 2 mg PO TID PRN 10/29/17 Disposition Discussed With: Patient
--- NOTE | 2017-10-29 09:33 | DI ---
EXAM: Radiographs, right rib HISTORY: Initial presentation for lateral right rib trauma. COMPARISON: Chest radiograph 04/29/2017. TECHNIQUE: Four views. FINDINGS/IMPRESSION: No right rib fracture identified. Right lung is clear without pleural effusion or pneumothorax.
--- NOTE | 2017-10-29 09:34 | DI ---
EXAM: Four views of the thoracic spine. History: Thoracic back trauma. Findings: No acute fracture or subluxation of the thoracic spine. Mild multilevel degenerative disc space narrowing with a few small osteophytes. No abnormal calcifications or radiopaque foreign bodi es. Partially visualized degenerative disc disease of the cervical spine. Impression: No acute osseous abnormality.
== END 2017-10-29 09:57 | disposition home or self-care (01) ==
LOC: ED 08:17
DX: S29.011A Strain of muscle and tendon of front wall of thorax, initial encounter (principal); M54.6 Pain in thoracic spine; X50.0XXA Overexertion from strenuous movement or load, initial encounter; W01.0XXA Fall on same level from slipping, tripping and stumbling without subsequent striking against object, initial encounter
CPT/HCPCS: 99282

== ENCOUNTER 2017-11-21 10:00 | Outpatient (RCR) ==
--- NOTE | 2017-11-14 08:25 | RS.OPPTEV2 ---
Date of Note: 11/12/17 Visit #: 1 Date of Evaluation: 11/12/17 Payer Source: MEDICARE Date of Onset/Injury/Change in Status: 10/11/17 Surgery Performed?: No Treatment Diagnosis: chronic back pain History of Condition/Mechanism of Injury:: pt reports she began having pain approx 1 month ago after getting her 40lb dog into the bath tub. Prior Level of Function.....Patient was independent with: ADL's, Self Care, Caregiving, Ambulation/Mobility, Community Integration/Access Functional Limitations: Sleep, Pulling, Lifting, Carrying, Sitting, Standing, Bending, Squatting, Ambulation, Community Access/Integration Current Subjective/complaints:: pt states that she also had a fall approx 1 week ago which has increased her pain. pt states she slipped in her socks on slick floor in her home. Treatment Side (optional): N/A *Precautions: Diabetic Medical History Medical History: Hypertension, CVA/TIA, Diabetes, Arthritis Medical History Comments:: Pt was in for outpatient therapy back in August and September. Patient reports her shoulder is worse. Surgical History: Knee Replacement Surgical History Comments:: shld surgery, detached retina, catacract surgery. Smoking Status: Never smoker Diagnostic Testing/Imaging:: thoracic x ray: no acute osseous abnormality Hx Home Medications: albuterol, aspirin, atorvastatin, carvedilol, clopidogrel, doxycycline, fluticasone, gabapentin, insulin, levemir, levothyroxine, losartan , omeprazole, praxosin, spironolactone, venlafaxine, Patient's Goals: decrease pain Pain Assessment - Pain Description Pain Location: mid to lower thoracic spine Pain Description: Aching Current Pain Intensity: 6/10 Worst Pain Intensity: 9/10 Functional Outcome Measure Oswestry LBP: 25 - G Codes & Severity Modifier G Codes & Modifier: mobility walking and moving around: current CK. mobility walking and moving around: goal CJ Source of G Code score: oswestry low back pain scale Observation - Observation Posture: Forward Head, Rounded Shoulders, Increased Thoracic Kyphosis, Decreased Lumbar Lordosis Handedness: Right Gait - Gait Pattern General Gait Pattern Observation: Crouched Gait, Decrease Stride Lngth (R), Decrease Stride Lngth (L) Gait Comments: pt amb with flexed posture, decreased step length General Range of Motion: WFL's Muscle Strength: RLE hip flex 4/5, knee flex/ext 4/5, ankle DF/PF 4/5. LLE hip flex 4+/5 knee flex/ext 4+/5, ankle Df/PF 4/5 with pain - ROM Lumbar Flexion: Hand reach to Mid-Thighs Sidebending to Left: Reach to Lateral Joint Line Sidebending to Right: Reach to Lateral Joint Line Lumbar Spine ROM Limitations: Soft Tissue Tightness, Muscle Weakness, Pain Comments: pt with decreased thoracic flex, rotation due to pain - Strength Trunk Flexion: 3- Fair- Trunk Lateral Flexion: 3- Fair- Trunk Rotation: 3- Fair- - Special Tests ERICK Test: Negative Left, Negative Right SLR Test: Negative Left, Negative Right Seated Dural Stretch Test: Negative Left, Negative Right SI Joint Compression: Negative SI Joint Distraction: Negative Palpation Palpation Findings: Tenderness, Muscle Guarding Comments:: pt with pain with palpation to thoracic paraspinal muscles. muscle spasms visible with palpation - Treatment Modality: Electrical Stim Unattended Parameters/Method Applied: IFC x 20 mins at 10v Patient Position: Left Sidelying - Heat/Cryotherapy Treatment: Hot Pack Comments:: mid/lower thoracic spine Interventions - Exercise/Activities/Manual Therapy Exercises/Activities: pt performed scapular retraction, corner stretch, side stretch. Manual Therapy: NA HOME EXERCISE PROGRAM: pt given written HEP including thoracic self mobilization , scapular retraction, corner stretch, side stretch - Charges Timed Code Treatment Minutes: 41 Total Treatment Time: 62 Procedures billed for this date of service:: eval med, estim unattended, HP EVALUATION COMPLEXITY LEVEL EVALUATION COMPLEXITY LEVEL: HISTORY: Medium (DM, HTN, CVA, IN, OA), EXAM OF BODY SYSTEMS: Medium (pain, strength, muscle tightness, ), CLINICAL PRESENTATION : Medium (evolving), CLINICAL DECISION MAKING: Medium Assessment Assessment: pt presents with muscle tightness, muscle spasms, pain in mid/lower thoracic spine. 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 Goal to be met by: 12/13/00 Goal #2: score on oswestry scale < 20 Goal to be met by: 12/13/17 Goal #3: pt with improved posture, and able to continue HEP after dc Goal to be met by: 12/13/17 Goal #4: Improve trunk ROM WFL's with decreased pain Goal to be met by: 12/13/17 Plan - Treatment to be Provided Procedures: Therapeutic Exercises, Therapeutic Activity, Neuromuscular Rehab, Patient Education Modalities: Electrical Stimulation, Ultrasound/Phonophoresis, Cryotherapy, Hot Packs - Treatment Plan Frequency: 2 X week Duration: 4 weeks ORDER # VISITS AND/OR THROUGH DATE: 12/13/17 - Treatment Code (1) Thoracic back pain Code(s): M54.6 - PAIN IN THORACIC SPINE Qualifiers: Chronicity: chronic Back pain laterality: bilateral Qualified Code(s): M54.6 - Pain in thoracic spine; G89.29 - Other chronic pain (2) Muscle tightness Code(s): M62.89 - OTHER SPECIFIED DISORDERS OF MUSCLE (3) Chronic back pain Code(s): M54.9 - DORSALGIA, UNSPECIFIED Qualifiers: Back pain location: thoracic back pain Back pain laterality: bilateral Qualified Code(s): M54.6 - Pain in thoracic spine; G89.29 - Other chronic pain
--- NOTE | 2017-11-14 14:24 | RS.OPPTDN ---
Subjective Date of Note: 11/14/17 Visit #: 2 Date of Evaluation: 11/12/17 Payer Source: MEDICARE Treatment Diagnosis: chronic back pain Current Subjective/complaints:: Patient says that she felt better after treatment at [facility], but says her back and R hip has been hurting more today due to prolonged walking at her MD appt., scheduling, and obtaining information for a Pain management. She says she was able to try HEP (corner stretch) this morning. She does not rate her pain. *Precautions: Diabetic Pain Assessment - Pain Description Pain Location: elevated pain to the mid to lower back and L hip - Treatment Modality: Electrical Stim Unattended Parameters/Method Applied: IFC @ 16-19 ma x 20 mins to the lower thoracic and lumbar paraspinals Patient Position: Left Sidelying - Heat/Cryotherapy Treatment: Hot Pack Interventions - Exercise/Activities/Manual Therapy Exercises/Activities: Patient receives passive stretching bilaterally including : SKTC, HS, Piriformis, lower trunk rotation, x 4. Scap retraction, shoulder shrugs, and review of HEP. Explained good body mechanics and postural techniques to improve rounded shoulders. Total minutes of Exercise: 20 Manual Therapy: NA HOME EXERCISE PROGRAM: pt given written HEP including thoracic self mobilization , scapular retraction, corner stretch, side stretch - Charges Timed Code Treatment Minutes: 20 Total Treatment Time: 40 Procedures billed for this date of service:: hp, estim (un), ex Assessment: Patient admits improvement with treatment at [facility] and today. Elis has elevated LBP and R hip pain today she indicates from walking back and forth to obtain MD orders and information about Pain management. She demo moderate muscle guarding to mid to lower thoracic and lumbar paraspinals. She guards throughout most stretches especially on the R side. She has initiated stretches at home and seems to do well with postural activity here. 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 Goal to be met by: 12/13/00 Goal #2: score on oswestry scale < 20 Goal to be met by: 12/13/17 Goal #3: pt with improved posture, and able to continue HEP after dc Goal to be met by: 12/13/17 Goal #4: Improve trunk ROM WFL's with decreased pain Goal to be met by: 12/13/17 Plan PLAN OF CARE EXPIRES ON:: 12/13/17 ORDER # VISITS AND/OR THROUGH DATE: 12/13/17 PLAN: Patient to continue for modalities to assist with muscle spasms and pain along with assisted therex to improve flexibility and postural strength.
--- NOTE | 2017-11-19 13:35 | RS.OPPTDN ---
Subjective Date of Note: 11/19/17 Visit #: 3 Date of Evaluation: 11/12/17 Payer Source: MEDICARE Treatment Diagnosis: chronic back pain Current Subjective/complaints:: Patient says she had a good day on yesterday, but had increased pain that interferred with her sleep last night. She says she is nervous about her appt. tomorrow with Pain Management. *Precautions: Diabetic Pain Assessment - Pain Description Pain Location: elevated last night and milder currently at the mid to low back - Treatment Modality: Electrical Stim Unattended Parameters/Method Applied: IFC @ 18-22 ma x 20 mins Patient Position: Left Sidelying - Heat/Cryotherapy Treatment: Hot Pack Interventions - Exercise/Activities/Manual Therapy Exercises/Activities: Patient continues with passive stretching bilaterally including: SKTC, HS, Piriformis, figure 4, lower trunk rotation, x 4. Scap retraction, shoulder shrugs, and review of postural techniques at EOB. Patient stands against wall for stability and support and uses 1# wand for bilateral shouler flexion x 10, red tband for scap retraction using wand, green tband for pull downs all x 10. Total minutes of Exercise: 22 Manual Therapy: NA HOME EXERCISE PROGRAM: pt given written HEP including thoracic self mobilization , scapular retraction, corner stretch, side stretch - Charges Timed Code Treatment Minutes: 22 Total Treatment Time: 42 Procedures billed for this date of service:: hp, estim (un), ex Assessment: Patient with recent increase in back pain which continues to limit amb outside on her normal routine walks. She did have reduced pain yesterday day in which she was pleased and is less at current. She is anxious about impending Pain Management appt. tomorrow and wonders if procedure will be performed at that time. She is able to perform all therex today with instruction well only with mild fatigue. 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 Goal to be met by: 12/13/00 Goal #2: score on oswestry scale < 20 Goal to be met by: 12/13/17 Goal #3: pt with improved posture, and able to continue HEP after dc Goal to be met by: 12/13/17 Goal #4: Improve trunk ROM WFL's with decreased pain Goal to be met by: 12/13/17 Plan PLAN OF CARE EXPIRES ON:: 12/13/17 ORDER # VISITS AND/OR THROUGH DATE: 12/13/17 PLAN: Patient to continue to work on mid to low back pain through modalities and therex to build postural strength.
--- NOTE | 2017-11-21 16:30 | RS.OPPTDN ---
Subjective Date of Note: 11/21/17 Visit #: 4 Date of Evaluation: 11/12/17 Payer Source: MEDICARE Treatment Diagnosis: chronic back pain Current Subjective/complaints:: Patient says she has her appt yesterday with Pain Management and was given Flexor patches and prescription for them. She says she will not be able to fill them due to it being $700.00+. She and MD is trying to avoid injections. *Precautions: Diabetic - Treatment Modality: Electrical Stim Unattended Parameters/Method Applied: IFC @ 12 pk volts x 20 mins to the lower thoracic to lumbar paraspinals Patient Position: Left Sidelying - Heat/Cryotherapy Treatment: Hot Pack Interventions - Exercise/Activities/Manual Therapy Exercises/Activities: Patient continues with passive stretching bilaterally including: SKTC, HS, Piriformis, figure 4, lower trunk rotation, x 4. Patient performs: pillow squeezes, isometric hip abd,flexion, bridging, x 10. DF with red tband x 10. Scap retraction, shoulder shrugs, and review of postural techniques at EOB. Placed Fentynol patch to the R lower thoracic paraspinals per request. Total minutes of Exercise: 24 Manual Therapy: NA HOME EXERCISE PROGRAM: pt given written HEP including thoracic self mobilization , scapular retraction, corner stretch, side stretch - Charges Timed Code Treatment Minutes: 24 Total Treatment Time: 44 Procedures billed for this date of service:: hp, estim (un), ex Assessment: Patient admits to having pain relief with treatment for several hours. She has had consultation with Pain Management and was given sample of Fentanyl patches, but unable to have prescription due to cost. She has performed all therex here well and without increase in symptoms. 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 Goal to be met by: 12/13/00 Goal #2: score on oswestry scale < 20 Goal to be met by: 12/13/17 Goal #3: pt with improved posture, and able to continue HEP after dc Goal to be met by: 12/13/17 Goal #4: Improve trunk ROM WFL's with decreased pain Goal to be met by: 12/13/17 Plan PLAN OF CARE EXPIRES ON:: 12/13/17 ORDER # VISITS AND/OR THROUGH DATE: 12/13/17 PLAN: Patient to continue 2-3 days per week for modalities to reduce pain and therex to improve strength and flexibility.
== END 2017-11-22 23:59 ==
PROVIDERS: ATTEND Family Medicine
DX: M54.9 Dorsalgia, unspecified (principal); M54.6 Pain in thoracic spine; G89.29 Other chronic pain; M62.89 Other specified disorders of muscle

== ENCOUNTER 2017-11-22 10:00 | Outpatient (RCR) ==
[2016-12-17 02:15] VITALS: BMI 33.4
== END 2017-11-22 23:59 ==
LOC: NEWBEG 10:00
PROVIDERS: ATTEND Psychiatry & Neurology Psychiatry
DX: F41.9 Anxiety disorder, unspecified (principal); F33.1 Major depressive disorder, recurrent, moderate; F43.10 Post-traumatic stress disorder, unspecified
CPT/HCPCS: 90832; 90834; 90853; 99213; 99214

== ENCOUNTER 2017-12-12 14:00 | Outpatient (RCR) | payer OTHER ==
--- NOTE | 2017-11-27 14:44 | RS.OPPTDN ---
Subjective Date of Note: 11/27/17 Visit #: 5 Date of Evaluation: 11/12/17 Payer Source: MEDICARE Treatment Diagnosis: chronic back pain Current Subjective/complaints:: Patient says that she was having cramps to her legs and back last night and will be having her son flip her mattress. She says she will be riding in the car to/from [place] tomorrow. *Precautions: Diabetic Pain Assessment - Pain Description Pain Location: R side of mid back and extending around to the abdomen - Treatment Modality: Electrical Stim Unattended Parameters/Method Applied: hivolt 4 large pads @ 60-75 pk volts placed vertically x 20 mins to the mid thoracic and upper lumbar paraspinals Patient Position: Left Sidelying - Heat/Cryotherapy Treatment: Hot Pack Interventions - Exercise/Activities/Manual Therapy Exercises/Activities: Patient continues with passive stretching bilaterally including: SKTC, HS, Piriformis, figure 4, lower trunk rotation, x 4. Patient performs: pillow squeezes, isometric hip abd,flexion, bridging, x 10. DF with red tband x 10. Scap retraction, shoulder shrugs, 2# wand for bilateral shoulder flexion and scap retraction x 10 and review of postural techniques at EOB. Encouraged ice pack for her back on the ride to/from [place]. Total minutes of Exercise: 22 Manual Therapy: NA HOME EXERCISE PROGRAM: Pendulum, scapular retraction, isometric shoulde add and ext with pillow, wand for chest press, short flexion, and IR/ER in supine. - Charges Timed Code Treatment Minutes: 22 Total Treatment Time: 42 Procedures billed for this date of service:: hp, estim (un), ex Assessment: Patient experiencing reduced pain level in general, but has had cramping intermittently to the R mid to low back that is extending to her abdomen. No discoloration or rash seen to this area. Patient requires cueing for postural techniques during exercise. Patient Education: Education of diagnosis, Home Exercise Program Patient demonstrates compliance with HEP?: Yes Short Term Goals Goal #1: pt rate pain <6/10 @ rest Goal to be met by: 11/26/17 Progress towards Goal:: Progressing Goal #2: pt with decreased mm spasms noted during palpation Goal to be met by: 11/26/17 Progress towards Goal:: Progressing Goal #3: pt Independent with initial HEP Goal to be met by: 11/26/17 Progress towards Goal:: Progressing Goal #4: pt to report ability to have 4 hours of uninterrupted sleep Goal to be met by: 11/26/17 Progress towards Goal:: No Change Assisted Goals Goal #1: 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
--- NOTE | 2017-11-29 14:51 | RS.OPPTDN ---
Subjective Date of Note: 11/29/17 Visit #: 6 Date of Evaluation: 11/12/17 Payer Source: MEDICARE Treatment Diagnosis: chronic back pain Current Subjective/complaints:: Patient says her back and R abdominal pain is better. She says even with traveling to [place], her pain did not elevate to what she'd anticipate. She indicates it is just along her low back currently. *Precautions: Diabetic Pain Assessment - Pain Description Pain Location: across the low back - Treatment Modality: Electrical Stim Unattended Parameters/Method Applied: IFC @ 21ma x 20 mins to the mid thoracic and lower lumbar paraspinals Patient Position: Left Sidelying - Heat/Cryotherapy Treatment: Hot Pack Interventions - Exercise/Activities/Manual Therapy Exercises/Activities: Patient continues with passive stretching bilaterally including: SKTC, HS, Piriformis, figure 4, lower trunk rotation, x 4. Patient performs: pillow squeezes, isometric hip abd,flexion, bridging, x 10. DF with red tband x 10. (Against the wall) Scap retraction, shoulder shrugs, 2# wand for bilateral shoulder flexion and scap retraction with green tband x 10 and review of postural techniques at EOB. Total minutes of Exercise: 22 Manual Therapy: NA HOME EXERCISE PROGRAM: Pendulum, scapular retraction, isometric shoulde add and ext with pillow, wand for chest press, short flexion, and IR/ER in supine. - Charges Timed Code Treatment Minutes: 22 Total Treatment Time: 42 Procedures billed for this date of service:: hp, estim (un),ex Assessment: Patient experiencing reduced pain since her last session. Pain no longer extending around to the R abdomen. Pain is equally across the low back. She is able to perform most therex with only general muscle fatigue, but is hindered mildly by L shoulder stiffness and lack of full ROM. 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
--- NOTE | 2017-12-02 14:51 | RS.OPPTDN ---
Subjective Date of Note: 12/02/17 Visit #: 7 Date of Evaluation: 11/12/17 Payer Source: MEDICARE Treatment Diagnosis: chronic back pain Current Subjective/complaints:: Patient says she had an activity [facility] [employer] and had a lot of prolonged sitting over the weekend. She does take her chair pillow to many places to assist with her back pain, which helps. She says pain is mostly at the R low back and is less than last week. *Precautions: Diabetic - Treatment Modality: Electrical Stim Unattended Parameters/Method Applied: hivolt 4 large pads vertically from mid thoracic to lower lumbar paraspinals @ 110-130 pk volts x 20 mins Patient Position: Left Sidelying - Heat/Cryotherapy Treatment: Hot Pack Interventions - Exercise/Activities/Manual Therapy Exercises/Activities: Patient continues with passive stretching bilaterally including: SKTC, HS, Piriformis, figure 4, lower trunk rotation, x 4. Patient performs: pillow squeezes, isometric hip abd,flexion, bridging, x 10. DF with red tband x 10. (Against the wall) Scap retraction, shoulder shrugs, 2# wand for bilateral shoulder flexion and scap retraction with green tband x 10 and review of postural techniques at EOB. Total minutes of Exercise: 22 Manual Therapy: NA HOME EXERCISE PROGRAM: Pendulum, scapular retraction, isometric shoulde add and ext with pillow, wand for chest press, short flexion, and IR/ER in supine. - Charges Timed Code Treatment Minutes: 22 Total Treatment Time: 42 Procedures billed for this date of service:: hp, estim(un), ex Assessment: Patient experiencing relief with current treatment to her low back to localizing at the R side instead of wrapping around the abdomen. She demo improved flexibility bilaterally. Patient Education: Education of diagnosis, Body/Joint mechanics, Home Exercise Program Patient demonstrates compliance with HEP?: Yes Short Term Goals Goal #1: pt rate pain <6/10 @ rest Goal to be met by: 11/26/17 Progress towards Goal:: Met Goal #2: pt with decreased mm spasms noted during palpation Goal to be met by: 11/26/17 Progress towards Goal:: Progressing Goal #3: pt Independent with initial HEP Goal to be met by: 11/26/17 Progress towards Goal:: Progressing Goal #4: pt to report ability to have 4 hours of uninterrupted sleep Goal to be met by: 11/26/17 Progress towards Goal:: No Change Nursing Home Goals Goal #1: 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
--- NOTE | 2017-12-06 14:33 | RS.OPPTDN ---
Subjective Date of Note: 12/06/17 Visit #: 8 Date of Evaluation: 11/12/17 Payer Source: MEDICARE Treatment Diagnosis: chronic back pain Current Subjective/complaints:: Patient says she is feeling better today and has less pain to her back. She says she gets really stiff with prolonged sitting. *Precautions: Diabetic - Treatment Modality: Electrical Stim Unattended Parameters/Method Applied: hivolt 4 large pads @ 135-150 pk volts x 20 mins to mid thoracic and upper lumbar Patient Position: Left Sidelying - Heat/Cryotherapy Treatment: Hot Pack Interventions - Exercise/Activities/Manual Therapy Exercises/Activities: Patient continues with passive stretching bilaterally including: SKTC, HS, Piriformis, figure 4, lower trunk rotation, x 4. Patient performs: pillow squeezes, isometric hip abd,flexion, bridging, x 10. DF with progressed to green tband x 10. SLR, SAQ 2# each leg 2x10(Against the wall) Scap retraction, shoulder shrugs, 2# wand for bilateral shoulder flexion and scap retraction with green tband x 10 and review of postural techniques at EOB. Total minutes of Exercise: 22 Manual Therapy: NA HOME EXERCISE PROGRAM: Pendulum, scapular retraction, isometric shoulde add and ext with pillow, wand for chest press, short flexion, and IR/ER in supine. - Charges Timed Code Treatment Minutes: 22 Total Treatment Time: 42 Procedures billed for this date of service:: hp, estim (Un)ex Patient Education: Education of diagnosis, Body/Joint mechanics, Education of Plan of Care Patient demonstrates compliance with HEP?: Yes Short Term Goals Goal #1: pt rate pain <6/10 @ rest Goal to be met by: 11/26/17 Progress towards Goal:: Met Goal #2: pt with decreased mm spasms noted during palpation Goal to be met by: 11/26/17 Progress towards Goal:: Progressing Goal #3: pt Independent with initial HEP Goal to be met by: 11/26/17 Progress towards Goal:: Progressing Goal #4: pt to report ability to have 4 hours of uninterrupted sleep Goal to be met by: 11/26/17 Progress towards Goal:: No Change Mcfp Goals Goal #1: 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
--- NOTE | 2017-12-10 14:19 | RS.OPPTDN ---
Subjective Date of Note: 12/10/17 Visit #: 9 Date of Evaluation: 11/12/17 Payer Source: MEDICARE Treatment Diagnosis: chronic back pain Current Subjective/complaints:: Patient says she has been ill over the weekend and it also made her back ache. She says she has only little pain to her mid to lower back now. *Precautions: Diabetic - Treatment Modality: Electrical Stim Unattended Parameters/Method Applied: IFC @ 19-22 ma x 20 mins to mid thoracic and lumbar paraspinals Patient Position: Left Sidelying - Heat/Cryotherapy Treatment: Hot Pack Interventions - Exercise/Activities/Manual Therapy Exercises/Activities: Patient continues with passive stretching bilaterally including: SKTC, HS, Piriformis, figure 4, lower trunk rotation, x 4. Patient performs: ball squeezes, hooklying hip abd with green tband,hooklying hip flexion with 2 1/2#, bridging,2 x 10. DF green tband x 10. SLR, SAQ 2 1/2# each leg 2x10(Against the wall) Scap retraction, shoulder shrugs, 2# wand for bilateral shoulder flexion and scap retraction with green tband x 10 and review of postural techniques at EOB. Total minutes of Exercise: 25 Manual Therapy: NA HOME EXERCISE PROGRAM: Pendulum, scapular retraction, isometric shoulde add and ext with pillow, wand for chest press, short flexion, and IR/ER in supine. - Charges Timed Code Treatment Minutes: 25 Total Treatment Time: 45 Procedures billed for this date of service:: hp, estim (un), ex2 Assessment: Patient presents with lowered back pain level. She has been recently ill allowing more ache to her back. She is progressing with general LE strength with all therex and decreasing muscle guarding to the mid to low back paraspinals. Patient Education: Body/Joint mechanics, Education of Plan of Care Patient demonstrates compliance with HEP?: Yes Short Term Goals Goal #1: pt rate pain <6/10 @ rest Goal to be met by: 11/26/17 Progress towards Goal:: Met Goal #2: pt with decreased mm spasms noted during palpation Goal to be met by: 11/26/17 Progress towards Goal:: Met Goal #3: pt Independent with initial HEP Goal to be met by: 11/26/17 Progress towards Goal:: Met (history of poor sleep pattern) Goal #4: pt to report ability to have 4 hours of uninterrupted sleep Goal to be met by: 11/26/17 Progress towards Goal:: No Change Retirement Goals Goal #1: 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
--- NOTE | 2017-12-12 16:27 | RS.OPPTDN ---
Subjective Date of Note: 12/12/17 Visit #: 10 Date of Evaluation: 11/12/17 Payer Source: MEDICARE Treatment Diagnosis: chronic back pain Current Subjective/complaints:: Patient says her back pain is much better. Reports she no longer has to take her "back pillow" with her when she leaves the house or to place in her car. She says she is able to stand longer for adventism activities. *Precautions: Diabetic Pain Assessment - Pain Description Pain Location: across the mid back, mostly R sided - Treatment Modality: Electrical Stim Unattended Parameters/Method Applied: hivolt 4 large pads uncrossed at the mid thoracic and upper lumbar paraspinals @ 180 pk volts (R) and 120 for the L x 20 mins Patient Position: Left Sidelying - Heat/Cryotherapy Treatment: Hot Pack (with estim) Interventions - Exercise/Activities/Manual Therapy Exercises/Activities: Patient continues with passive stretching bilaterally including: SKTC, HS, Piriformis, figure 4, lower trunk rotation, x 4. Patient performs: ball squeezes, hooklying hip abd with green tband,hooklying hip flexion with 2 1/2#, bridging,2 x 10. DF green tband x 10. SLR, SAQ 2 1/2# each leg 2x10. Assisted patient with Functional Index. Total minutes of Exercise: 22 Manual Therapy: NA HOME EXERCISE PROGRAM: Pendulum, scapular retraction, isometric shoulde add and ext with pillow, wand for chest press, short flexion, and IR/ER in supine. - Objective Findings Observations,measurements,etc.: Score 17 or 34% impairment on Oswestry Scale - Charges Timed Code Treatment Minutes: 25 Total Treatment Time: 45 Procedures billed for this date of service:: hp, estim (un), ex Assessment: Patient has progressed with reduced back pain and muscle guarding to the thoracic area. She has met her functional scale goal and all STG and most of LTG. She has a HEP and has admitted improvement with sitting longer without needing her pillow support and also sleeping better. Patient Education: Body/Joint mechanics, Home Exercise Program, Education of Plan of Care Patient demonstrates compliance with HEP?: Yes Short Term Goals Goal #1: pt rate pain <6/10 @ rest Goal to be met by: 11/26/17 Progress towards Goal:: Met Goal #2: pt with decreased mm spasms noted during palpation Goal to be met by: 11/26/17 Progress towards Goal:: Met Goal #3: pt Independent with initial HEP Goal to be met by: 11/26/17 Progress towards Goal:: Met (history of poor sleep pattern) Goal #4: pt to report ability to have 4 hours of uninterrupted sleep Goal to be met by: 11/26/17 Progress towards Goal:: Met Residential Goals Goal #1: 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
== END 2017-12-22 23:59 ==
PROVIDERS: ATTEND Family Medicine
DX: M54.6 Pain in thoracic spine (principal); G89.29 Other chronic pain; M62.89 Other specified disorders of muscle

== ENCOUNTER 2017-12-20 10:00 | Outpatient (RCR) | payer OTHER | END 2017-12-22 23:59 | LOC: NEWBEG 10:00 | PROVIDERS: ATTEND Psychiatry & Neurology Psychiatry | DX: F41.9 Anxiety disorder, unspecified (principal); F33.1 Major depressive disorder, recurrent, moderate; F43.10 Post-traumatic stress disorder, unspecified | CPT/HCPCS: 90853; 99213 ==

== ENCOUNTER 2018-01-20 09:29 | Outpatient (CLI) | payer OTHER ==
--- NOTE | 2018-01-20 11:04 | MAMMO ---
EXAM: Bilateral digital screening mammogram (2-D and 3-D) History: Screening Comparison: Left mammogram 07/27/2016, bilateral mammogram 02/24/2016 Findings: MLO and CC views of bilateral breasts demonstrate scattered fibroglandular breast parenchy ma. CAD was reviewed by the radiologist. Tomosynthesis was performed. Stable benign lymph node wit hin the left breast. Stable benign bilateral breast calcifications. There are no developing masses, no suspicious microcalcifications and no architectural distortions. Biopsy clip again seen within t he left breast Impression: Benign stable mammogram. Recommend followup routine screening mammography in 1 year. BIRADS 2
== END 2018-01-20 09:30 | disposition home or self-care (01) ==
LOC: RAD 09:29
PROVIDERS: ATTEND Family Medicine
DX: Z12.31 Encounter for screening mammogram for malignant neoplasm of breast (principal)
CPT/HCPCS: 77067

== ENCOUNTER 2018-01-22 10:00 | Outpatient (RCR) | END 2018-01-22 23:59 | LOC: NEWBEG 10:00 | PROVIDERS: ATTEND Psychiatry & Neurology Psychiatry | DX: F41.9 Anxiety disorder, unspecified (principal); F33.1 Major depressive disorder, recurrent, moderate; F43.10 Post-traumatic stress disorder, unspecified | CPT/HCPCS: 90853; 99213 ==

== ENCOUNTER 2018-03-24 10:00 | Outpatient (RCR) | END 2018-03-24 23:59 | LOC: NEWBEG 10:00 | PROVIDERS: ATTEND Psychiatry & Neurology Psychiatry | DX: F41.9 Anxiety disorder, unspecified (principal); F33.1 Major depressive disorder, recurrent, moderate; F43.10 Post-traumatic stress disorder, unspecified | CPT/HCPCS: 90853; 99213 ==

== ENCOUNTER 2018-03-31 08:54 | Outpatient (CLI) ==
[2018-03-31 09:53] VITALS: BMI 31.8
== END 2018-03-31 08:55 | disposition home or self-care (01) ==
LOC: DIETCN 08:54
PROVIDERS: ATTEND Family Medicine
DX: E11.65 Type 2 diabetes mellitus with hyperglycemia (principal); Z79.4 Long term (current) use of insulin
CPT/HCPCS: 97802

== ENCOUNTER 2018-04-23 10:00 | Outpatient (RCR) | END 2018-04-24 23:59 | LOC: NEWBEG 10:00 | PROVIDERS: ATTEND Psychiatry & Neurology Psychiatry | DX: F41.9 Anxiety disorder, unspecified (principal); F33.1 Major depressive disorder, recurrent, moderate; F43.10 Post-traumatic stress disorder, unspecified | CPT/HCPCS: 90834; 90853; 99213 ==

== ENCOUNTER 2018-05-21 10:00 | Outpatient (RCR) | END 2018-05-22 23:59 | LOC: NEWBEG 10:00 | PROVIDERS: ATTEND Psychiatry & Neurology Psychiatry | DX: F41.9 Anxiety disorder, unspecified (principal); F33.1 Major depressive disorder, recurrent, moderate; F43.10 Post-traumatic stress disorder, unspecified | CPT/HCPCS: 90853; 99213 ==

== ENCOUNTER 2018-06-06 10:00 | Outpatient (RCR) | END 2018-06-22 23:59 | LOC: NEWBEG 10:00 | PROVIDERS: ATTEND Psychiatry & Neurology Psychiatry | DX: F41.9 Anxiety disorder, unspecified (principal); F33.1 Major depressive disorder, recurrent, moderate; F43.10 Post-traumatic stress disorder, unspecified | CPT/HCPCS: 90853; 99213 ==

== ENCOUNTER 2018-07-18 23:50 | Emergency (ER) | payer OTHER ==
[2018-07-19 00:01] VITALS: BP 107/64; TEMP 98.7; BMI 31.1
--- NOTE | 2018-07-19 00:30 | ED.PDOC ---
General ED Provider: Dr. BEATRIZ AMEZCUA MD Chief Complaint: Wrist Pain/Injury Stated Complaint: left wrist pain, surgery on ago Time Seen by Physician: 00:15 Mode of Arrival: Walk-In Information Source: Patient Exam Limitations: No limitations Primary Care Provider: ANNAMARIE STEVENS Nursing and Triage Documentation Reviewed and Agree: Yes Does patient meet sepsis criteria?: No If yes, has appropriate treatment been initiated?: Yes System Inflammatory Response Syndrome: Not Applicable Sepsis Protocol: For patient's 13 years and over: Temp is 96.8 and below OR 101 and greater Pulse >90 BPM Resp >20/minute Acutely Altered Mental Status Are patient's symptoms suggestive of a new infection, such as: -Pneumonia -Skin, Soft Tissue -Endocarditis -UTI -Bone, Joint Infection -Implantable Device -Acute Abdominal Infection -Wound Infection -Meningitis -Blood Stream Catheter Infection -Unknown Review of Systems - Review Of Systems Constitutional: Reports: No symptoms Eyes: Reports: No symptoms Ears, Nose, Mouth, Throat: Reports: No symptoms Respiratory: Reports: No symptoms Cardiac: Reports: No symptoms GI: Reports: No symptoms : Reports: No symptoms Musculoskeletal: Reports: No symptoms (wrist), Joint pain Skin: Reports: No symptoms Neurological: Reports: No symptoms Endocrine: Reports: No symptoms Hematologic/Lymphatic: Reports: No symptoms All Other Systems: Reviewed and Negative Past Medical History - Past Medical History Previously Healthy: Yes Endocrine: Reports: DM 1, Hypothyroid, Dyslipidemia Cardiovascular: Reports: Hypertension Respiratory: Reports: None Hematological: Reports: None Gastrointestinal: Reports: Gallstones Genitourinary: Reports: None Neuro/Psych: Reports: TIA, Anxiety, Depression Musculoskeletal: Reports: None Cancer: Reports: None Last Menstrual Period: 2013 Other Pertinent Past Medical History: TONSILLS, - Surgical History General Surgical History: Reports: Orthopedic, Other, Tonsillectomy - Family History Family History: Reports: Unknown - Social History Smoking Status: Never smoker Hx Substance Use: No Alcohol Screening: None - Immunizations Tetanus Shot up to Date: Yes Physical Exam - Physical Exam Appearance: Well-appearing Pain Distress: Mild Eyes: WHIT, EOMI, Conjunctiva clear ENT: Ears normal, Nose normal, Oropharynx normal Respiratory: Airway patent, Breath sounds clear, Breath sounds equal, Respirations nonlabored Cardiovascular: RRR, Pulses normal, No rub, No murmur GI/: Soft, Nontender, No masses, Bowel sounds normal, No Organomegaly Musculoskeletal: Normal strength, ROM intact (left wrist mildly red inflammed at incision site, wound partially dehisence), No edema, No calf tenderness Skin: Warm, Dry, Normal color Neurological: Sensation intact, Motor intact, Reflexes intact, Cranial nerves intact, Alert, Oriented Psychiatric: Affect appropriate, Mood appropriate Critical Care Note - Critical Care Note Total Time (mins): 0 Course - Course Vital Signs: Temp Pulse Resp BP Pulse Ox 07/18/18 23:51 98.7 F 87 18 107/64 95 Departure - Departure Time of Disposition: 00:55 Disposition: HOME SELF-CARE Discharge Problem: Wound infection after surgery Instructions: Cellulitis (ED) Condition: Good Pt referred to PMD for follow-up: Yes IPMP verified?: No Prescriptions: Amoxicillin 500 mg PO BID 7 Days #14 capsule NS Allergies/Adverse Reactions: Allergies cephalexin monohydrate [From Keflex] Adverse Reaction (Verified 07/19/18 00:02) Hives Sulfa (Sulfonamide Antibiotics) Adverse Reaction (Verified 07/19/18 00:02) Hives sulfamethoxazole [From Bactrim] Adverse Reaction (Verified 07/19/18 00:02) Hives trimethoprim [From Bactrim] Adverse Reaction (Verified 07/19/18 00:02) Hives Home Medications: Ambulatory Orders Aspirin [Ecotrin] 81 mg PO DAILY 07/25/14 Venlafaxine HCl [Effexor Xr] 75 mg PO DAILY 07/25/14 Clopidogrel Bisulfate [Clopidogrel] 75 mg PO DAILY 02/18/15 Albuterol Sulfate 0.083% Neb [Albuterol 0.083% Neb] 1 vial NEB BID PRN 03/24/16 Albuterol Sulfate [Proventil Hfa] 2 puff INH Q4HR PRN 03/24/16 Carvedilol [Coreg] 6.25 mg PO BIDWM 05/11/16 Insuln Asp Prt/Insulin Aspart [Novolog Mix 70-30 Insulin] 10 unit SUBCUT TIDWM 08/09/16 Losartan Potassium [Cozaar] 50 mg PO DAILY 08/14/16 Gabapentin [Neurontin] 100 mg PO DAILY 12/17/16 Levothyroxine Sodium [Synthroid] 150 mcg PO QDAC 12/17/16 Spironolactone [Aldactone] 25 mg PO DAILY 12/17/16 Atorvastatin Calcium [Lipitor] 10 mg PO BEDTIME 10/29/17 Fluticasone Propionate [Flonase] 2 spray NS DAILY 10/29/17 Insulin Detemir [Levemir] 100 unit SUBCUT BEDTIME 10/29/17 Meloxicam 15 mg PO DAILY 10/29/17 Omeprazole [Prilosec] 20 mg PO QDAC 10/29/17 Prazosin HCl [Minipress] 1 mg PO BEDTIME 10/29/17 Sodium Chloride [[place] Nasal [place]] 1 spray NS PRN PRN 10/29/17 Tizanidine HCl [Zanaflex] 2 mg PO TID PRN 10/29/17 Amoxicillin 500 mg PO BID 7 Days #14 capsule NS 07/19/18 Levetiracetam 250 mg PO BID 07/19/18 Transfer Form Completed: No Disposition Discussed With: Patient, Family (patient says she can take Amoxicillin)
== END 2018-07-19 01:07 | disposition home or self-care (01) ==
LOC: ED 23:50
DX: T81.49XA Infection following a procedure, other surgical site, initial encounter (principal); M25.532 Pain in left wrist; Z98.890 Other specified postprocedural states
CPT/HCPCS: 99282